=== PATIENT | female | born 1960 | race Caucasian/White ===

== ENCOUNTER 2025-01-27 21:01 | Emergency (ER) | payer OTHER, SELFPAY ==
--- NOTE | ~2025-01-27 | CT_ITS ---
CLINICAL HISTORY: Flank pain CT abdomen and pelvis with contrast Comparison: None Findings: The lung bases are clear. There are multiple bilateral nonobstructing renal calculi. Kidneys enhance symmetrically. No right-sided ureteral stone. There is mild left hydronephrosis and in the proximal left ureter is a 5 mm calcified stone. Spleen, adrenal glands, pancreas, gallbladder are unremarkable. Liver is mildly enlarged. No bowel obstruction, pneumoperitoneum, or pneumatosis. Pelvic contents unremarkable. Normal appendix. No acute fracture. IMPRESSION: 5 mm calcified stone in the proximal left ureter resulting in mild left hydronephrosis. Multiple bilateral nonobstructing renal calculi. This document has been electronically signed by: Ventura Szymanski MD on 01/27/2025 23:46:49
[2025-01-27 21:04] VITALS: BP 117/66; PULSE 73; RESP 18; TEMP 36.8; O2SAT 96; BMI 20.1
[2025-01-27 21:22] VITALS: BP 125/72; PULSE 61; RESP 16; TEMP 36.5; O2SAT 98
[2025-01-27 21:23] LABS: MANUAL DIFF FLAG NO
[2025-01-27 21:28] LABS: Basophils Percent Auto 0.4 % (0-2); Eosinophils Absolute Auto 0.1 X10*3/uL (0.0-0.4); Eosinophils Percent Auto 1.3 % (0-4); Hematocrit 41.1 % (37.0-47.0); Hemoglobin 14.1 g/dl (12.0-16.0); Imm Gran Abs Auto 0.03 X10*3/uL (0.00-0.03); Imm Gran Pct Auto 0.3 % (0.0-0.4); Lymphocytes Absolute Auto 1.9 X10*3/uL (1.2-4.9); Lymphocytes Percent Auto 20.9 % (20-40); Mean Corpuscular HGB Conc 34.3 g/dl (31.0-35.0); Mean Corpuscular Hemoglobin 32.6 pg (27.0-33.0); Mean Corpuscular Volume 95.1 fL (80.0-98.0); Mean Platelet Volume 9.9 fL (9.4-12.3); Monocytes Absolute Auto 0.7 X10*3/uL (0.1-1.2); Monocytes Percent Auto 7.7 % (2-11); Neutrophils Absolute Auto 6.3 x10*3/uL (2.0-8.3); Neutrophils Percent Auto 69.4 % (45-73); Platelet Count 328 X10*3/uL (160-400); Red Blood Count 4.32 X10*6/uL (4.20-5.50); Red Cell Distribution Width 12.8 % (11.0-16.0); White Blood Count 9.1 X10*3/uL (4.8-10.8)
[2025-01-27 21:42] LABS: Alanine Aminotransferase 39 U/L (0-31); Albumin Level 4.3 g/dL (3.5-5.0); Alkaline Phosphatase 61 U/L (39-117); Anion Gap 14 (12-20); Aspartate Amino Transferase 34 U/L (5-31); Bilirubin Total 0.2 mg/dL (0.0-1.0); Blood Urea Nitrogen 17 mg/dL (9-16); Calcium 9.7 mg/dL (8.4-10.2); Carbon Dioxide 25 mmol/L (22-29); Chloride 106 mmol/L (96-108); Creatinine Clr Calc Pharmacy 65.1; Estimated Glomerular Filt Rate > 60; Glucose Random 101 mg/dL (60-115); Sodium 141 mmol/L (135-145); Total Protein 7.1 g/dL (6.5-8.0)
[2025-01-27] MEDS: Ketorolac Tromethamine 15 MG/ML VIAL IVPUSH (22:34)
[2025-01-27] MEDS: ondansetron HCL 4 MG/2 ML VIAL IVPUSH (22:34)
[2025-01-27] MEDS: 0.9 % Sodium Chloride 1,000 ML 999 ML IV (22:35)
--- NOTE | 2025-01-27 22:35 | ED.GENADULT ---
HPI - General Adult General Chief complaint: Back Pain/Injury Stated complaint: Lower back pain Time Seen by Provider: 01/27/25 22:23 History of Present Illness ED Provider: Dr. Price HPI narrative: 64 y/o F patient; PMH rheumatoid arthritis on hydroxychloroquine and methotrexate, sinus tachycardia on cardizem; presents from home with for a few hours of severe left sided flank pain associated with nausea and vomiting. The patient states she has a history of kidney stones approx 20 - 25 years ago that felt similar. She otherwise denies: fever or chills, SOB, cough/congestion, abdominal pain. Her partner is not sick. Related Data Previous Rx's ?Medication ?Instructions ?Recorded acetaminophen 500 mg tablet 1,000 mg (2 x 500 mg) PO Q6H PRN 01/27/25 (Tylenol Extra Strength) pain 7 days #30 tabs ibuprofen 400 mg tablet 400 mg PO Q6H PRN pain 7 days #30 01/27/25 tabs ondansetron 4 mg disintegrating 4 mg PO Q8H PRN nausea and 01/27/25 tablet vomiting 7 days #30 tabs tamsulosin 0.4 mg capsule (Flomax) 0.4 mg PO DAILY 30 days #30 caps 01/27/25 Allergies Allergy/AdvReac Type Severity Reaction Status Date / Time No Known Allergies Allergy Verified 01/27/25 21:07 Review of Systems Review of Systems: Yes all other systems are reviewed and are negative [facility] Past Medical History Attestation statement: The following information was validated with the patient. Source: unable to obtain Social History Social History Alcohol intake: current Alcohol intake frequency: holidays/special occasions only Smoked in Last 30 Days: No Use of substances other than those prescribed or required for medical reasons: No Advance Directives: No Advance Directives Information Provided: No Patient : No Physical Exam ED Vital Signs: Vital Signs - 24 hr 01/27/25 21:04 01/27/25 21:22 01/27/25 23:00 Temperature 98.2 F 97.7 F Pulse Rate 73 61 92 Respiratory Rate 18 16 Blood Pressure 117/66 125/72 119/68 Pulse Oximetry 96 98 94 Oxygen Delivery Method Room Air Room Air Room Air BMI result Body Mass Index 20.1 Patient is afebrile and hemodynamically stable. Const General: cooperative HENMT Head: Yes normal to inspection and Yes atraumatic Eyes General: appearance normal, both eyes and all related structures Pupils: Equal, round and reactive pupils present EOM: EOMs intact bilaterally Neck Neck: Yes normal visual inspection, Yes full ROM, Yes supple and No tender Chest Chest palpation & inspection: normal inspection of the chest and normal palpation of entire chest wall Resp Effort & Inspection: normal respiratory effort, able to speak in complete sentences, no cough and no respiratory distress Auscultation: clear to auscultation bilaterally Cardio Rate: regular rate Rhythm: regular rhythm Peripheral pulses: Peripheral pulses 2+ throughout GI Inspection: Yes normal to inspection, No Abdominal wall edema and No distended Palpation (GI): Soft to palpation, not firm, nontender, no guarding and not rigid Auscultation: normal bowel sounds Back/Spine/Pelvis Back: No back tenderness Neuro Cranial nerves: Yes Equal, round and reactive pupils present Course Course Course Narrative: Patient is afebrile and hemodynamically stable. Differentials include but not limited to: nephrolithiasis, cystitis, pyelonephritis, back spasm. Provided 1L IVF for hydration, 4mg Zofran for nausea, and Toradol 15mg IV for analgesia. Ordered for lab work, UA, and CT Abdomen/Pelvis. Labs reviewed. No leukocytosis. Mild transaminitis, unclear baseline. Patient's nausea and pain has improved. Reevaluation(s) Reevaluation #1: CT reviewed. Noted to have 5mm calcified stone in the proximal left ureter resulting in mild left hydronephrosis. Will start on Flomax. Providing Urology follow up. UA with mild hematuria without cystitis. Rx Flomax, Tylenol, Ibuprofen, and Zofran sent to pharmacy. Medications Administered Discontinued Medications Generic Name Dose Route Start Last Admin Trade Name Freq PRN Reason Stop Dose Admin Sodium Chloride 1,000 mls @ 999 mls/hr 01/27/25 22:30 01/27/25 22:35 Ns IV 01/27/25 23:30 999 mls/hr .Q1H1M JAMAL Administration Iohexol 85 ml 01/27/25 22:53 01/27/25 22:54 Iohexol 350 Mg/Ml 100 Ml Infus..Btl IV 01/27/25 22:54 85 ml ONCE ONE Administration Ketorolac Tromethamine 15 mg 01/27/25 22:23 01/27/25 22:34 Ketorolac Tromethamine 15 Mg/Ml Vial IVPUSH 01/27/25 22:24 15 mg ONCE ONE Administration Ondansetron HCl 4 mg 01/27/25 22:23 01/27/25 22:34 Ondansetron Hcl 4 Mg/2 Ml Vial IVPUSH 01/27/25 22:24 4 mg ONCE ONE Administration Medical Decision Making Lab Data 01/27/25 21:15 01/27/25 21:15 Labs: Lab Results 01/27/25 01/27/25 Range/Units 21:15 23:29 WBC 9.1 (4.8-10.8) X10*3/uL RBC 4.32 (4.20-5.50) X10*6/uL Hgb 14.1 (12.0-16.0) g/dl Hct 41.1 (37.0-47.0) % MCV 95.1 (80.0-98.0) fL MCH 32.6 (27.0-33.0) pg MCHC 34.3 (31.0-35.0) g/dl RDW 12.8 (11.0-16.0) % Plt Count 328 (160-400) X10*3/uL MPV 9.9 (9.4-12.3) fL Immature Gran % (Auto) 0.3 (0.0-0.4) % Neut % (Auto) 69.4 (45-73) % Lymph % (Auto) 20.9 (20-40) % [place] % (Auto) 7.7 (2-11) % Eos % (Auto) 1.3 (0-4) % Baso % (Auto) 0.4 (0-2) % Lymph # (Auto) 1.9 (1.2-4.9) X10*3/uL [place] # (Auto) 0.7 (0.1-1.2) X10*3/uL Eos # (Auto) 0.1 (0.0-0.4) X10*3/uL Baso # (Auto) 0.0 (0.0-0.2) X10*3/uL Abs Immat Gran (auto) 0.03 (0.00-0.03) X10*3/uL Absolute Neuts (auto) 6.3 (2.0-8.3) x10*3/uL Absolute Nucleated RBC 0.000 (0.0-0.012) X10*3/uL Nucleated RBC % (auto) 0.0 (0.0-0.2) /100WBC Sodium 141 (135-145) mmol/L Potassium 4.0 (3.3-5.1) mmol/L Chloride 106 (96-108) mmol/L Carbon Dioxide 25 (22-29) mmol/L Anion Gap 14 (12-20) BUN 17 H (9-16) mg/dL Creatinine 0.75 (0.5-1.4) mg/dL Estim Creat Clear Calc 65.1 Estimated GFR > 60 Random Glucose 101 (60-115) mg/dL Calcium 9.7 (8.4-10.2) mg/dL Total Bilirubin 0.2 (0.0-1.0) mg/dL AST 34 H (5-31) U/L ALT 39 H (0-31) U/L Alkaline Phosphatase 61 (39-117) U/L Total Protein 7.1 (6.5-8.0) g/dL Albumin 4.3 (3.5-5.0) g/dL Urine Color Yellow Urine Appearance Clear Urine pH 7.0 (5.0-9.0) Ur Specific [place] >= 1.030 H (1.005-1.025) Urine Protein Negative (Neg-Trace) mg/dL Urine Glucose (UA) Negative (Negative) mg/dL Urine Ketones Trace (Negative) mg/dL Urine Blood Moderate (2+) H (Negative) Urine Nitrite Negative (Negative) Ur Leukocyte Esterase Small (1+) H (Negative) Urine RBC 6-10 H (0-2) /HPF Urine WBC 0-5 (0-5) /HPF Ur Squamous Epith Cells 0-2 (0-2) /HPF Urine Bacteria None Seen (None Seen) Hyaline Casts 0-2 (0-2) /LPF Radiology Impression Discussion of test interpretation with radiology: I have reviewed the radiologist's reading. Radiologist Impression: CLINICAL HISTORY: Flank pain CT abdomen and pelvis with contrast Comparison: None Findings: The lung bases are clear. There are multiple bilateral nonobstructing renal calculi. Kidneys enhance symmetrically. No right-sided ureteral stone. There is mild left hydronephrosis and in the proximal left ureter is a 5 mm calcified stone. Spleen, adrenal glands, pancreas, gallbladder are unremarkable. Liver is mildly enlarged. No bowel obstruction, pneumoperitoneum, or pneumatosis. Pelvic contents unremarkable. Normal appendix. No acute fracture. IMPRESSION: 5 mm calcified stone in the proximal left ureter resulting in mild left hydronephrosis. Multiple bilateral nonobstructing renal calculi. This document has been electronically signed by: Ventura Szymanski MD on 01/27/2025 23:46:49 Discharge Plan Discharge Clinical Impression: Left nephrolithiasis Patient Disposition: Home, Self-Care Instructions: Kidney Stones (ED) Additional Instructions: As we discussed, you were diagnosed with a 5mm left-sided kidney stone. You have been sent prescriptions for tylenol 1g and ibuprofen 400mg to be taken alternating every 6 hours as needed. You have also been sent a prescription for Zofran for nausea to be taken every 8 hours as needed. The prescription for Flomax is to assist with passing the stone, take it once a day as prescribed. Call to schedule an appointment with the Urology service on Tuesday. Return to the emergency department for: Worsening pain Fever Vomiting where you cannot sip water Prescriptions: New tamsulosin [Flomax] 0.4 mg capsule 0.4 mg PO DAILY 30 Days Qty: 30 0RF ibuprofen 400 mg tablet 400 mg PO Q6H PRN (Reason: pain) 7 Days Qty: 30 0RF acetaminophen [Tylenol Extra Strength] 500 mg tablet 1,000 mg PO Q6H PRN (Reason: pain) 7 Days Qty: 30 0RF ondansetron 4 mg tablet,disintegrating 4 mg PO Q8H PRN (Reason: nausea and vomiting) 7 Days Qty: 30 0RF Referrals: [facility] [place] [Provider Group] (Please call Tuesday to schedule an appointment for follow up. ) Print Language: Gibralt[place]
[2025-01-27] MEDS: iohexoL 350 MG/ML 100 ML INFUS..BTL 85 ML IV (22:54)
[2025-01-27 23:00] VITALS: BP 119/68; PULSE 92; O2SAT 94
--- NOTE | 2025-01-27 23:08 | PC.NURSE ---
got toradol and zofran. pain and nausea resolved as stated by pt. currently tolerating PO water without n/v
[2025-01-27 23:34] LABS: Appearance Urine Clear; Color Urine Yellow; Glucose Urine UA Negative (Negative); Leukocyte Esterase Urine Small (1+) (Negative); Nitrite Urine Negative (Negative); Specific Gravity - Urine >= 1.030 (1.005-1.025); UMIC TRIGGER UACC YES; Urine Blood Moderate (2+) (Negative); Urine Ketones Trace mg/dL (Negative); Urine Protein Negative (Neg-Trace)
[2025-01-27 23:46] LABS: Bacteria Urine None Seen (None Seen); Hyaline Casts Urine 0-2 /LPF (0-2); Squamous Epithelial Cell Urine 0-2 /HPF (0-2); UACC Culture Trigger YES; WBC Urine 0-5 /HPF (0-5)
[2025-01-28 00:41] VITALS: BP 121/67; PULSE 93; RESP 16; TEMP 36.5; O2SAT 94
== END 2025-01-28 00:45 | disposition home or self-care (01) ==
PROVIDERS: Emergency Provider Emergency Medicine
DX: N20.0 Calculus of kidney (principal); R10.9 Unspecified abdominal pain; R11.2 Nausea with vomiting, unspecified; R00.0 Tachycardia, unspecified; M06.9 Rheumatoid arthritis, unspecified
CPT/HCPCS: 36415; 74177; 80053; 81001; 85025; 87086; 96361; 96374; 96375; 99284; J1885; J2405; Q9967

== ENCOUNTER → 2025-01-27 22:24 | Outpatient (BNV) | payer OTHER, SELFPAY | PROVIDERS: Emergency Provider Emergency Medicine; Visit Provider Radiology Diagnostic Radiology | DX: N20.1 Calculus of ureter (principal); N13.30 Unspecified hydronephrosis; N20.0 Calculus of kidney | CPT/HCPCS: 74177 ==

== ENCOUNTER 2025-03-13 14:53 | Outpatient (AMB) | payer OTHER, SELFPAY ==
--- NOTE | 2025-03-13 15:47 | MHC.OFFVIS ---
Intake Visit Reasons: bilateral kidney stones Intake Note: Patient is present for BILATERAL KIDNEY STONES Urology Medication:TAMSULOSIN Antibiotic Allergy:NONE Blood Thinner:NONE Production Supv Required: No Allergies No Known Allergies Allergy (Verified 03/13/25 15:48) HPI Comments Details: Mary is a pleasant female. They are seen for the following urologic conditions - nephrolithiasis Initial presentation Encourage intervention Nephrolithiasis Mary presents for - initial evaluation for nephrolithiasis, Initial presentation through emergency room late January Presenting symptoms included left flank pain which had been resolved but has recurred in the past few days Imaging - 02/24 CT scan left mild hydro uretero nephrosis with 5 mm proximal ureteric stone, bilateral small stones Laboratory investigations - creatinine 0.75, blood in the urine Stone composition - unknown 24 hour urine evaluation - none on file Interventions - none Current therapeutic plan - recommend intervention with left ureteroscopy [facility] Social History Alcohol intake: current Alcohol intake frequency: holidays/special occasions only Review of Systems Const Denies chills and Denies fever(s) Card Reports no additional complaints and Denies syncope Resp Denies cough GI Denies abdominal pain and Denies heartburn Reports as per HPI and Denies change in libido Neuro Denies syncope Psych Denies change in libido Endo Denies change in libido Physical Exam Const General: cooperative, healthy appearing, comfortable and no acute distress Orientation/consciousness: patient oriented x3 HEENT Face and sinus: Yes normal facial exam Mouth: moist mucous membranes Neck Neck: Yes normal visual inspection, Yes full ROM and Yes trachea midline Chest Chest palpation & inspection: normal inspection of the chest Resp Effort & Inspection: normal respiratory effort, able to speak in complete sentences and no respiratory distress GI Inspection: Yes normal to inspection Back/Spine/Pelvis Cervical Spine: normal cervical lordosis Thoracic/Lumbar Spine: thoracic and lumbar spine normal to inspection Skin General skin exam: no rashes or lesions noted Neuro General: patient oriented x3, gait normal, tone normal and moves all extremities Extrem General: Yes normal to inspection and Yes capillary refill normal Results AMB Urinalysis, Automated UA Leukoctes 0 Xander/uL Last Edit by AIRAM Flores on 03/13/25 16:01 UA Nitrite Negative Last Edit by AIRAM Flores on 03/13/25 16:01 UA Urobilinogen 0.2 mg/dL Last Edit by AIRAM Flores on 03/13/25 16:01 UA Protein 0 mg/dL Last Edit by Ashwini Davis [facility] on 03/13/25 16:01 UA pH 6.0 Last Edit by Ashwini aDvis [facility] on 03/13/25 16:01 UA Blood 200 [place]/uL Last Edit by Ashwini Davis [facility] on 03/13/25 16:01 UA Specific [place] 1.005 Last Edit by Ashwini Davis [facility] on 03/13/25 16:01 UA Ketone Negative Last Edit by Ashwini Davis [facility] on 03/13/25 16:01 UA Bilirubin 0 mg/dL Last Edit by Ashwini Davis [facility] on 03/13/25 16:01 UA Glucose 0 mg/dL Last Edit by Ashwini Davis [facility] on 03/13/25 16:01 Assessment & Plan Assessment & Plan (1) Bilateral nephrolithiasis: Code(s): N20.0 - Calculus of kidney Category: Medical Plan Ureteroscopy We discussed the nature of the decision and reasonable alternatives for performing ureteroscopy. Options such as medical therapy were discussed. Interventions include chemical dissolution, ESWL, ureteroscopy with laser lithotripsy and stent placement, PCNL. The relative uncertainties and benefits related to each alternate procedure were adequately discussed. General surgical risks including, but not limited to - pain, bleeding, infection, myocardial infarction, pulmonary embolus, deep vein thrombosis and cerebrovascular accident which may result in further hospitalization were discussed. Full disclosure of the procedure as well as all major risks, benefits and complications were discussed including but not limited to damage to the urethra, bladder and kidney infection, damage to the ureter, stent migration or malposition, scarring to the renal pelvis, remnant stone fragments, subsequent stone passage with need for secondary procedures. The overall secondary procedure rate is approximately 10-15%. The overall clearance rate is approximately 90-95%. Success of the procedure in the short-term does not necessarily guarantee that long-term success will be maintained. Suitable follow up will need to be maintained. The patient showed understanding of discussion and wishes to proceed with - cystoscopy, retrograde, ureteroscopy, possible lithotripsy/stone basketing and stent on the left side Orders: Orders AMB Urinalysis Automated Today Z13.9 - Encounter for screening, unspecified Patient Instructions: This note is constructed using voice recognition software. While every effort has been made to ensure accuracy contact lens manufacturer errors may have been included. Imaging studies, laboratory and physical exam results were discussed and reviewed in detail. No major barriers to patient understanding were identified. An opportunity to ask questions regarding the treatment plan was provided. All questions were answered. The patient expressed understanding and agreement with the above treatment plan. The patient is aware they should contact our office by phone for worsening of their current condition or the appearance of new urologic symptoms. Compliance is encouraged with any medications and followup testing that is ordered. It is a privilege to participate in the urologic care of your patient. If you have any questions or concerns regarding treatment for the above conditions, or other urologic issues, please do not hesitate to contact me. The office telephone contact is [phone]. Sincerely, Dr Dada Mcarthur MD, [facility] - Urology Compassionate Specialist Care for the Genitourinary System Coding Level of Care Code New Pt Level 4 (46610) Diagnoses Bilateral nephrolithiasis N20.0
--- OUTSIDE RECORDS SUMMARY | 2025-03-13 17:06 | XMS_ITS ---
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 Name Role Phone Mar Whaley Primary Care Provider Mack Escalante Unavailable [phone] Allergies No Known Allergies Results Component Value Reference Range Notes Sedimentation Rate-Westergre n-[id number] Reviewed date:02/23/2025 07:06:15 AM Interpretation: Performing Lab:[facility], [address] [facility], Phone - [phone], Director - Jacklyn Notes/Report: Sedimentation Rate-Westergren 18 0-40 mm/hr C-Reactive Protein, Quant-00 [id number] Reviewed date:02/23/2025 07:05:09 AM Interpretation: Performing Lab:[facility] [place], [address] [facility], Phone - [phone], Director - Jacklyn Notes/Report: C-Reactive Protein, Quant 2 0-10 mg/L Kalie Anand CMP14 Default A hand-written panel/profile was received from your office. In accordance with the [facility] Ambiguous Test Code Policy dated April 2003, we have completed your order by using the closest currently or formerly recognized AMA panel. We have assigned Comprehensive Metabolic Panel (14), Test Code #032969 to this request. If this is not the testing you wished to receive on this specimen, please contact the [facility] Client Inquiry/Technical Services Department to clarify the test order. We appreciate your business. Comprehensive Metabolic Pane l ([id number], [facility]) Reviewed date:02/23/2025 07:05:00 AM Interpretation: Performing Lab:[facility] Lozada, [facility], Phone - [phone], Director - MDJodry Notes/Report: Glucose 91 70-99 mg/dL BUN 12 8-27 mg/dL Creatinine 0.62 0.57-1.00 mg/dL eGFR 101 >59 mL/min/1.73 BUN/Creatinine Ratio 19 12-28 Sodium 140 134-144 mmol/L Potassium 4.2 3.5-5.2 mmol/L Chloride 102 96-106 mmol/L Carbon Dioxide, Total 21 20-29 mmol/L Calcium 9.4 8.7-10.3 mg/dL Protein, Total 7.0 6.0-8.5 g/dL Albumin 4.4 3.9-4.9 g/dL Globulin, Total 2.6 1.5-4.5 g/dL Bilirubin, Total 0.4 0.0-1.2 mg/dL Alkaline Phosphatase 68 44-121 IU/L AST (SGOT) 20 0-40 IU/L ALT (SGPT) 24 0-32 IU/L CBC, No Differential/Platele t-[id number] (Use This One) Reviewed date:02/23/2025 07:05:20 AM Interpretation: Performing Lab:Mariajose Lozada, [facility], Phone - [phone], Director - Shreyadry Notes/Report: WBC 6.2 3.4-10.8 x10E3/uL RBC 4.27 3.77-5.28 x10E6/uL Hemoglobin 13.5 11.1-15.9 g/dL Hematocrit 40.5 34.0-46.6 % MCV 95 79-97 fL MCH 31.6 26.6-33.0 pg MCHC 33.3 31.5-35.7 g/dL RDW 13.0 11.7-15.4 % Platelets 251 150-450 x10E3/uL T4 and TSH-[id number] Reviewed date:02/23/2025 07:05:29 AM Interpretation: Performing Lab:Mariajose Lozada, [facility], Phone - [phone], Director - MDJodry Notes/Report: TSH 2.790 0.450-4.500 uIU/mL Thyroxine (T4) 8.0 4.5-12.0 ug/dL Lipid Panel-[id number] Reviewed date:03/04/2025 02:48:05 PM Interpretation: Performing Lab:[facility], [address], [place], Phone - [phone], Director - Jacklyn Notes/Report: Cholesterol, Total 241 100-199 mg/dL Triglycerides 165 0-149 mg/dL HDL Cholesterol 51 >39 mg/dL VLDL Cholesterol Jg 30 5-40 mg/dL LDL Chol Calc (NIH) 160 0-99 mg/dL Reason For Referral Reason rheumatoid arthritis Diagnosis 1 Rheumatoid arthritis (M06.9) Referral Organization [facility] Referring Provider First Name Mack Referring Provider Last Name Boris Referring Provider Speciality Family Pra ctice Referred Provider [facility] Referred Provider Specialty Rheumatology General Notes Maricarmen Napoles 01/02 10:50:29 AM > Referral faxed to: [phone] Clinical Notes Provider Name: [facility], Provider ID Number: , Provider UPIN: , Provider , Provider Facility: , Provider Speciality: Rheumatology, Address1: [address] [place] [address], Address2: , [facility] [place], Zip: [place], [address], , Appt. Date/Time: , Referral Priority Routine REASON FOR VISIT CPE- fu, PHQ9: 0, PAP: 09/14/22 negative, due in 09/26, declines for today, MAMMO: last 05/06/2021- overdue, will schedule- HW sheet given, COLONOSCOPY: Cologaurd done 01/25/24 negative- due 2026, HCP: Carmen Jarquin-partner, ppw given, Imms: due for pcv20 (checked miyanira nuñez), declines today will timmy SINGH, Hearing screen: R- uto, L- refer Medications Medication SIG (Take, Route, Frequency, Duration) Notes Start Date End Date Status Cardizem CD 240 MG 1 cap(s) orally twic e a day Active Methotrexate Sodium 2.5 MG 5 tabs orally once a week Active Iron 90 (18 Fe) MG 1 PO BID 45mg A ctive Folic Acid 1 MG 1 tab(s) orally once a day Active Hydroxychloroquine Sulfate 2 00 MG 1 tab(s) orally once a day Active Dexilant 60 MG TAKE 1 CAPSULE BY MOUTH EVERY DAY for 90 Active Caltrate 600+D Plus Minerals 600-800 MG-UNIT 1 tab(s) orally 2 times a day for 30 day(s) Active Diclofenac 1% DIRECTED PRN Active Vital Signs Temperature 96.9 degrees Fahrenheit 01/26/20 Blood pressure systolic 104 mm Hg 01/26/20 Blood pressure diastolic 60 mm Hg 025 Height 63.75 in 01/25/2025 Weight 117.4 lbs 01/25/2025 BMI 20.31 kg/m2 01/25/2025 Oximetry 95 01/25/2025 Encounters Encounter Location Date Provider Diagnosis [address] [address] 01/25/2025 Mack Escalante Adult physical NITISH L Z00.00 ; Mammogram, Routine Z12.31 and Rheumatoid arthritis M06.9 Assessments Encounter Date Diagnosis (ICD Code) Assessment Notes Treatment Notes Treatment Clinical Notes Section Notes 01/25/2025 Adult physical NORMAL (ICD-10 - Z00.00) see below Plans to schedule appt for pap when due 01/25/2025 Mammogram, Routine (ICD-10 - Z12.31) Past due for screening. Patient has HW sheet with number to call to schedule 01/25/2025 Rheumatoid arthritis (ICD-10 - M06.9) referral to [facility] made as patient in in need of new sizing sprayer. Labs ordered. Condition stable 01/25/2025 Other Health maintenance flow sheet reveiwed and updated Plan Of Treatment Treatment Notes Assessment Notes Adult physical NORMAL see below Plans to schedule appt for pap when due Mammogram, Routine Past due for screeni ng. Patient has HW sheet with number to call to schedule Rheumatoid arthritis referral to [facility] treatment center made as patient in in need of new sizing sprayer. Labs ordered. Condition stable Other Health maintenance f low sheet reveiwed and updated Pending Test Test Name Order Date COMP MET PANEL 01/25/2025 Referrals Referral Date Details 01/25/2025 01/25/2025, rheumato id arthritis, Center [facility] Next Appt Details Follow Up: @ [facility], 1 Year, Reason: Provider Name:Mitra Tejeda, 09/16/2025 04:30:00 PM, [address] [place] [address], [id number], Provider Name:Mack Escalante, 0 01/29/2026 04:00:00 PM, [address] [place], [address], Procedure Notes * Category Sub-Category Detail Notes Hearing Screen Completed * OAE UTO R ear , OAE Refer L ear Progress Notes * NATHAN ANTHONYJESUSB:1960 ( 64 yo F)Acc No.[id number]:01/25/2025 Progress Notes Patient:?LEONIDAS ANTHONY Appointment Provider:?BIRGIT Clifton :1960???Age:64 Y???Sex:Female S upervising Provider:Mar Whaley MD Date:01/25/2025 ?N#:[id number] Address:[address] [place], [place] [id number] Pcp:Mar Whaley Subjective: * Chief Complaints: * ???CPE- fuPHQ9: 0PAP: negative, due in 09/26, declines for todayMAMMO: last 05/06/2021- overdue, will schedule- HW sheet givenCOLONOSCOPY: Cologaurd done 01/25/24 negative- due 2026HCP: Carmen Jarquin-partner, ppw givenImms: due for pcv20 (checked miyanira nuñez), declines today will make a NVHearing screen: R- uto, L- refer * HPI: ???Interim History:? 64 year old Female presents for CPE First time i am meeting patient RA - things have been stable. Taking hydroxycholoroquine and MTX. Prior rheumoatologist no longer seeing patients locally. 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 ???Depression Screening:?PHQ-9?Little interest or pleasure in doing things?Not at all,?Feeling down, depressed, or hopeless?Not at all,?Trouble falling or staying asleep, or sleeping too much?Not at all,?Feeling tired or having little energy?Not at all,?Poor appetite or overeating?Not at all,?Feeling bad about yourself-or that you are a failure or have let yourself or your family down?Not at all,?Trouble concentrating on things, such as reading the newspaper or watching television?Not at all,?Moving or speaking so slowly that other people could have noticed. Or the opposite, being so fidgety or restless that you have been moving around a lot more than usual?Not at all,?Thoughts that you would be better off , or of hurting yourself in some way?Not at all,?Total Score?0.? * ROS:?See HPI. Other systems reviewed and noncontributory except for as noted above . * Medical History:? * Surgical History:?R ear surg les for hearing loss 1980ovarian cysts removed 2003 or 2002?ovaries removed 2007gum surgery 03/2020 * Hospitalization/Major Diagno stic Procedure:?Denies Past Hospitalization * Family History:?Father: dece ased, diagnosed with Diabetes, Hypertension.?Mother: .?Paternal Grand Father: .?Paternal Grand Mother: .?Maternal Grand Father: . Maternal Grand Mother: .?Siblings: alive.?1 sister(s) . .? * Social History:?Lives: [place] , lives wih partner. Smoking Smart Form?Are you a:: nonsmoker.?Smoking: no?Former Smoker:?No,?Second Hand Smoke:?No.?Alcohol: a beer or two a week. Drug use: denies. 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 Gnosticism: none. Caffeine: None. Pets: Dogs:1 , Cats:1 , chickens. sleep: difficulty staying asleep, wakes hourly. Falls asleep ok initially and in the night diet: varied, no red meat. * Medications:?TakingHydroxych loroquine Sulfate 200 MG Tablet 1 tab(s) orally once a day Folic Acid 1 MG Tablet 1 tab(s) orally once a day Iron 90 (18 Fe) MG Tablet 1 PO BID , Notes to Pharmacist: 45mgMethotrexate Sodium 2.5 MG Tablet 5 tabs orally once a week Cardizem CD 240 MG Capsule Extended Release 24 Hour 1 cap(s) orally twice a day Diclofenac 1% DIRECTED PRN Caltrate 600+D Plus Minerals 600-800 MG-UNIT Tablet 1 tab(s) orally 2 times a day Dexilant 60 MG Capsule Delayed Release TAKE 1 CAPSULE BY MOUTH EVERY DAY Medication List reviewed and reconciled with the patientTaking Hydroxychloroquine Sulfate 200 MG Tablet 1 tab(s) orally once a day Taking Folic Acid 1 MG Tablet 1 tab(s) orally once a day Taking Iron 90 (18 Fe) MG Tablet 1 PO BID , Notes to Pharmacist: 45mgTaking Methotrexate Sodium 2.5 MG Tablet 5 tabs orally once a week Taking Cardizem CD 240 MG Capsule Extended Release 24 Hour 1 cap(s) orally twice a day Taking Diclofenac 1% DIRECTED PRN Taking Caltrate 600+D Plus Minerals 600-800 MG-UNIT Tablet 1 tab(s) orally 2 times a day Taking Dexilant 60 MG Capsule Delayed Release TAKE 1 CAPSULE BY MOUTH EVERY DAY Medication List reviewed and reconciled with the patient * Allergies:?N.K.D.A.no[Allerg ies Verified] Objective: * Vitals:?Initials:ldb, Ht: 63 .75 in, Wt: 117.4 lbs, BMI: 20.31 Index, Temp: 96.9 F, Temp Route: T, HR: 81, PulseOx: 95, BP: 104/60, PHQ-9: 0. * Physical Examination:?GENERAL:?General Appearence:?well-appearing, alert and oriented.?SKIN:?Moles:?benign appearing.?LYMPH NODES:?Cervical:?none.?EYES:?Conjunctiva:?no conjunctival injections. JOSELINE, EOMI bilaterally.?HEENT:?Head:?normocephalic.?Tympanic membrane(s):?clear and flat bilaterally.?Mouth:?moist mucus membranes, no lesions. .?NECK:?General:?supple.?Thyroid:?Not enlarged.?Cervical lymph nodes:?normal.?Muscles:?normal.?BREASTS:?Exam deferred?per patient's preference.?CHEST:?Shape and expansion:?normal.?HEART:?PMI:?normal.?Rhythm:?regular.?Murmurs:?no.?Heart sounds:?normal.?Clicks:?no.?LUNGS:?General:?no wheezes or rales. good airflow throughout.?ABDOMEN:?General:?soft, no masses or hepatosplenomegaly, nontender, NABS.?BACK:?Spine:?normal.?GENITOURINARY - FEMALE:?General:?deferred today.?EXTREMITIES:?Edema:?no.?Cyanosis:?no.?Clubbing:?no.?Tremors:?no.?Pulses:?2+ bilateral.?MUSCULOSKELETAL:?General:?normal strength and ROM noted..?NEUROLOGICAL:?Sensory:?Normal.?Motor:?Normal.?Coordination:?Normal.?Reflexes:?2+.?Gait:? Normal.? Assessment: * Assessment: 1.?Adult physical NORMAL - Z 00.00 (Primary)???2.?Mammogram, Routine - Z12.31???3.?Rheumatoid arthritis - M06.9??? Plan: * Treatment: ? Value Reference Range ?Cholesterol, Total 241 H 100- 199 - mg/dL * ?Triglycerides 165 H 0-149 - m g/dL * ?HDL Cholesterol 51 >39 - m g/dL * ?VLDL Cholesterol Jg 30 5- 40 - mg/dL * ?LDL Chol Calc (NIH) 160 H 0-9 9 - mg/dL ?LAB: CBC, No Differential/Platelet-[id number] (Use This One) (Collection Date & Time - 02/21/2025 07:41 AM)* ? Value Reference Range ?WBC 6.2 3.4-10.8 - x10E 3/uL * ?RBC 4.27 3.77-5.28 - x10 E6/uL * ?Hemoglobin 13.5 11.1-15.9 - g/dL * ?Hematocrit 40.5 34.0-46.6 - % * ?MCV 95 79-97 - fL * ?MCH 31.6 26.6-33.0 - pg * ?MCHC 33.3 31.5-35.7 - g/d L * ?RDW 13.0 11.7-15.4 - % * ?Platelets 251 150-450 - x10 E3/uL ?LAB: T4 and TSH-[id number] (Collection Date & Time - 02/21/2025 07:41 AM)* ? Value Reference Range ?TSH 2.790 0.450-4.500 - u IU/mL * ?Thyroxine (T4) 8.0 4.5-12.0 - ug/dL Notes: see below Plans to schedule appt for pap when due??2.?Mammogram, Routine? Notes: Past due for screening. Patient has HW sheet with number to call to schedule??3.?Rheumatoid arthritis?LAB: COMP MET PANEL ?LAB: Sedimentation Wnjs-[id number] (Collection Date & Time - 02/21/2025 07:41 AM)* ? Value Reference Range ?Sedimentation Rate-Westergren 18 0-40 - mm/hr ?LAB: C-Reactive Protein, Quant-[id number] (Collection Date & Time - 02/21/2025 07:41 AM)* ? Value Reference Range ?C-Reactive Protein, Quant 2 0-10 - mg/L Notes: referral to [facility]ritis treatment center made as patient in in need of new sizing sprayer. Labs ordered. Condition stable? Referral To:Center [facility]??Rheumatology ?Reason:rheumatoid arthritis 4.?Others? Notes: Health maintenance flow sheet reveiwed and updated?? * Procedures:?Hearing Screen:?Completed?* OAE UTO R ear?, OAE Refer L ear.? * Labs:? * ?Lab: Comprehensive [place] bolic Panel ([id number], [facility]) (Collection Date & Time - 02/21/2025 07:41 AM) ? Value Reference Range ?Glucose 91 70-99 - mg/dL * ?BUN 12 8-27 - mg/dL * ?Creatinine 0.62 0.57-1.00 - mg/dL * ?BUN/Creatinine Ratio 19 12 -28 - * ?Sodium 140 134-144 - mmol/ L * ?Potassium 4.2 3.5-5.2 - mmo l/L * ?Chloride 102 96-106 - mmol/ L * ?Carbon Dioxide, Total 21 2 0-29 - mmol/L * ?Calcium 9.4 8.7-10.3 - mg/d L * ?Protein, Total 7.0 6.0-8.5 - g/dL * ?Albumin 4.4 3.9-4.9 - g/dL * ?Globulin, Total 2.6 1.5-4.5 - g/dL * ?Bilirubin, Total 0.4 0.0-1. 2 - mg/dL * ?Alkaline Phosphatase 68 44 -121 - IU/L * ?AST (SGOT) 20 0-40 - IU/L * ?ALT (SGPT) 24 0-32 - IU/L * ?eGFR 101 >59 - mL/min/1. 73 * Procedure Codes:?90818 PHQ9 or ADHD scale * Preventive Medicine:? ??Counseling:?Diet?.?Injury prevention?.?Exercise?.?Sexual practices?.?Domestic violence?.?Sunscreen?.?Health?discuss perimenopausal signs and symptoms.?no risk factors identified. * Follow Up:?@ pap smear in [place], 1 Year * Images: Billing Information: * Visit Code:? 15431 Preventive Care Est Pt. Age 40-64. * Procedure Codes:? 26735 PHQ9 or ADHD scale. Care Plan Details* * Sign off status: Completed true * Appointment Provider:?BIRGIT Clifton Date :?01/25/2025 Generated for Jeovanny velasquez/Leatha/eTransmitting on:?03/13/2025 05:05 PM EDT History and Physical Notes * HPI (History of Present Illness) Category Sub-Category Detail Notes Category Not es Depression Screening PHQ-9 Little inte rest or pleasure in doing things: Not at all Feeling down, depressed, or hopeless: No t at all Trouble falling or staying asleep, or sl eeping too much: Not at all Feeling tired or having little energy: N ot at all Poor appetite or overeating: Not at all Feeling bad about yourself-o r that you are a failure or have let yourself or your family down: Not at all Trouble concentrating on thi ngs, such as reading the newspaper or watching television: Not at all Moving or speaking so slowly that other people could have noticed. Or the opposite, being so fidgety or restless that you have been moving around a lot more than usual: Not at all Thoughts that you would be b edmundo off , or of hurting yourself in some way: Not at all Total Score: 0 Interim History 64 year old Female presents for CPE First time i am meeting patient RA - things have been stable. Taking hydroxycholoroquine and MTX. Prior rheumoatologist no longer seeing patients locally. 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 NECK General: supple Thyroid: Not enlarged Cervical lymph nodes: normal Muscles: normal Carotid bruit: JVD: EXTREMITIES Edema: no Cyanosis: no Clubbing: no Tremors: no Pulses: 2+ bilateral BACK Spine: normal CHEST Shape and expansion: normal HEART PMI: normal Rhythm: regular Murmurs: no Heart sounds: normal Clicks: no ABDOMEN General: soft, no masses or hepatospl enomegaly, nontender, NABS NEUROLOGICAL cranial nerves Sensory: Normal Motor: Normal Coordination: Normal Reflexes: 2+ Babinski: Gait: Normal MUSCULOSKELETAL General: normal strength and ROM n oted. GENITOURINARY - FEMALE General: deferred today SKIN Moles: benign appearing GENERAL General Appearence: well-appearing, alert and oriented LYMPH NODES Cervical: none Axillary: LUNGS General: no wheezes or rales. good ai rflow throughout BREASTS Exam deferred per patient's preference EYES Conjunctiva: no conjunctival injections. JOSELINE, EOMI bilaterally Consultation Request Notes Referral Date Referring Provider Referred Provider Not es 01/25/2025 Mack Escalante [facility] rheumatoid [facility]
== END 2025-03-13 16:20 | disposition home or self-care (01) ==
LOC: HO.HUSH 14:53
PROVIDERS: Visit Provider Urology
DX: Z13.9 Encounter for screening, unspecified (principal); N20.0 Calculus of kidney
CPT/HCPCS: 99204

== ENCOUNTER → 2025-03-13 14:53 | Outpatient (BNVA) | payer OTHER, SELFPAY | PROVIDERS: Visit Provider Urology | DX: N20.0 Calculus of kidney (principal) | CPT/HCPCS: 81003 ==

== ENCOUNTER 2025-03-18 10:21 | Day surgery (SDC) | payer OTHER, SELFPAY ==
--- NOTE | ~2025-03-18 | FL_ITS ---
EXAMINATION: XR FLUOROSCOPY WITH IMAGES CLINICAL INFORMATION: Left ureteral stone with stent placement. COMPARISON: None available. TECHNIQUE: Fluoroscopy provided to: Dr. Mcarthur Fluoroscopy time: 16.9 seconds Dose: 2.64 mGy Images: 2 FINDINGS: 2 spot images taken during left nephroureteral stent placement. Please refer to the full operative report for details. FL/FL guidance in OR IMPRESSION: Fluoroscopic guidance. Electronically signed by: Boris Rutherford MD 03/18/2025 12:54 PM EDT
--- NOTE | 2025-03-18 10:23 | P.CONAN_ITS ---
[facility] Active Problems Active Problems: All Active Problems Bilateral nephrolithiasis (Acute) Past Medical History Medical History Rheumatoid arthritis Tachycardia Surgical History Surgical History H/O removal of cyst History of ear surgery H/O bilateral oophorectomy History of Problems with Anesthesia: No Social History Social History Are you a primary career placement specialist to a significant other at home: No Do you presently have visiting nurse or other home services: No Alcohol intake: current Alcohol intake frequency: a few times a month Patient Tobacco Use Status: Never used Tobacco Meds Allergies Allergy/AdvReac Type Severity Reaction Status Date / Time No Known Allergies Allergy Verified 03/18/25 10:24 Home Medications ?Medication ?Instructions ?Recorded ?Confirmed ?Last Taken ?Type dexlansoprazole 60 mg 60 mg PO DAILY 03/18/25 03/18/25 Unknown History capsule,biphase delayed release diltiazem HCl 240 mg 240 mg PO BID 03/18/25 03/18/25 03/17/25 History capsule,extended release 24 hr folic acid 1 mg tablet 1 mg PO DAILY 03/18/25 03/18/25 03/17/25 History hydroxychloroquine 200 mg tablet 200 mg PO DAILY 03/18/25 03/18/25 Unknown History iron 03/18/25 03/18/25 Unknown History methotrexate sodium 2.5 mg tablet 12.5 mg PO QWEEK 03/18/25 03/18/25 03/12/25 History prednisone 5 mg tablet 5 mg PO NEEDED flair ups 03/18/25 03/18/25 Unknown History Exam Airway Mallampati Class: II TM Dist: >3cm Neck ROM: Limited Loose/Missing/Broken Teeth: No Heart: RRR Lungs: CTA Assessment and Plan Assessment Anesthesia Assessment: Anesthesia Plan Discussed Final Anesthetic Review History of Problems with Anesthesia: No NPO: Yes ASA Class: II Final Preanesthetic Review: Meds/Allgs Chart Reviewed, Consent Obtained/Reviewed and Anes Risks/Benef Reviewed Patient Risk: Low Procedure Risk: Low Anesthetic Plan Anesthetic Plan: GA Disposition: Standard PACU
[2025-03-18 10:32] VITALS: BP 129/70; PULSE 63; RESP 16; TEMP 36.3; O2SAT 96; BMI 20.1
[2025-03-18] MEDS: Lactated Ringers 1,000 ML 80 ML IVCONT (11:18)
--- NOTE | 2025-03-18 12:01 | MHC.SHP ---
Pre-Procedural Eval Section A - 24 Hr Update-Section A only Date of Service: 03/18/25 The patient is an INPATIENT: No Changes since office visit: No Cold of Flu in the past 2 weeks, No New Medical Problems, No Changes in Medication and No Patient answered all questions The patient has been examined within 24 hours of the surgical procedure. The History & Physical has been completed within 30 days and I have reviewed it.: Yes Section B - Complete if H&P > 30 days Chief Complaint: Calculus of ureter Allergies: Allergies Allergy/AdvReac Type Severity Reaction Status Date / Time No Known Allergies Allergy Verified 03/18/25 10:24 Review of Systems Sugical H&P ROS: Negative: Constitution, Cardiovascular, Respiratory, Neurological, Psychiatric, Hem-Onc, Allergic/Immunologic, Gastrointestinal, Genitourinary, Musculoskeletal, Integumentary, Endocrine and Eyes/Ears/Nose/Throat Exam Surgical H&P Exam: Normal: HEENT, Normal: Heart, Normal: Lungs, Normal: Extremities, Normal: Abdomen, Normal: Skin and Normal: Neurological Plan Diagnosis/Plan: Unchanged (Cystoscopy, left retrograde, left ureteroscopy with laser lithotripsy stent placement) I have reviewed the history and physical and performed a pertinent physical examination on my patient. No changes have occurred unless specified. Time Spent With Patient Time: Total time managing care of this patient today ____ minutes.
[2025-03-18] MEDS: levoFLOXacin/D5W 500 MG/100 ML PIGGYBACK 100 MG IV (12:05)
--- NOTE | 2025-03-18 12:34 | P.OP_ITS ---
Operative Note Operative Note Date of Service: 03/18/25 Narrative: PreOperative Diagnosis: Mid left ureteric stone Post Operative Diagnosis: Mid left ureteric stone Procedure: - cystoscopy, left retrograde - left dilatation of ureteric orifice under fluoroscopy - left ureteroscopy, laser lithotripsy, stone basketing - left stent placement Surgeon: Dr Dada Mcarthur Anesthesia: General Indications for procedure: Presentation after ear visit for renal stones. Mid left ureteric stone with hydronephrosis. Procedure: After informed consent was verified the patient was brought to the operating room and placed in a supine position. Anesthesia was administered per protocol. The patient was placed in a modified dorsal lithotomy position and prepped and draped in a sterile fashion. Safety pause time-out and side of surgery were confirmed. Images were available for review. Antibiotic administration confirmed. A 22 Bermudian cystoscope was inserted per urethra. The urethra was without abnormality. The bladder was normal in its entirety. Both ureteric orifices were seen in normal position. Left ureteric orifice normal. The left ureteric orifice was cannulated and a retrograde examination was performed. Filling defects seen at junction between mid and distal ureter. A Sensor guidewire was placed up to the level of the renal pelvis under fluoroscopy. The rigid cystoscope was removed. A Antonia dilator was placed over the Sensor guidewire and used to dilate the ureteric orifice under fluoroscopy. The dilator was removed. The semi rigid ureteral scope was placed alongside the Sensor guidewire. The stone was encountered at that junction between the mid and distal 3rd ureters. Using a 365 micro holmium laser fiber the stone was broken into small pieces using a combination of hammer and dusting techiques. Stone fragments were removed from the ureter using a 2.4 Bermudian ZeroTip basket basket. Once the fragments were removed a decision was made to place a ureteric stent. Based on the height of the patient a 6 Fr x 24 cm stent was used. The string was removed from the stent prior to placement. A 6 Bermudian by 24 cm double-J stent was placed into the renal pelvis and bladder under a combination of fluoroscopy and direct visualization. The symphisis pubis was used as a radiographic marker to release the stent and good coil was seen within the bladder confirming position Proximal positioning of the stent was confirmed using fluoroscopy. The bladder was emptied. The patient tolerated the procedure well and was extubated in the operating room. They were transferred in stable condition to the recovery area. Pathology: stones Drains: Double J stent as described above
[2025-03-18 12:40] VITALS: BP 112/62; PULSE 74; TEMP 36.2; O2SAT 99
[2025-03-18 12:45] VITALS: BP 115/65; PULSE 69; PULSE 72; RESP 16; O2SAT 97; O2SAT 99
[2025-03-18 12:50] VITALS: BP 115/64; PULSE 76; RESP 12; O2SAT 99
[2025-03-18 12:55] VITALS: BP 120/69; PULSE 70; RESP 12; O2SAT 99
[2025-03-18 13:10] VITALS: BP 122/71; PULSE 58; RESP 14; TEMP 36.1; O2SAT 99
== END 2025-03-18 14:04 | disposition home or self-care (01) ==
PROVIDERS: PCP Family Medicine; Visit Provider Urology
PROC: (CPT 52356; principal; 2025-03-18 11:30)
DX: N13.2 Hydronephrosis with renal and ureteral calculous obstruction (principal); M06.9 Rheumatoid arthritis, unspecified; R00.0 Tachycardia, unspecified; Z79.52 Long term (current) use of systemic steroids; Z79.899 Other long term (current) drug therapy; Z98.890 Other specified postprocedural states
CPT/HCPCS: 52356; 82365; 88300; C1758; C1769; C2617; J0131; J1100; J1956; J2003; J2250; J2371; J2405; J2704; J3010; Q9967

== ENCOUNTER → 2025-03-18 10:21 | Outpatient (BNV) | payer OTHER, SELFPAY | PROVIDERS: PCP Family Medicine; Visit Provider Urology | DX: N20.1 Calculus of ureter (principal) | CPT/HCPCS: 52356; 74420 ==

== ENCOUNTER 2025-04-03 10:35 | Outpatient (AMB) | payer OTHER, SELFPAY ==
--- NOTE | 2025-04-03 10:39 | MHC.OFFVIS ---
Intake Visit Reasons: Stent removal Intake Note: Patient is present for STENT REMOVAL Urology Medication:TAMSULOSIN Antibiotic Allergy:NONE Blood Thinner:NONE LOT: [id number] EXP:10/07/27 Plumbing Assembler Required: No Allergies No Known Allergies Allergy (Verified 04/03/25 10:40) HPI Comments Details: Mary is a pleasant female. They are seen for the following urologic conditions - nephrolithiasis Follow-up for stent removal Three-month follow-up ultrasound, [facility]ol[facility], stone labs Nephrolithiasis Mary presents for - initial evaluation for nephrolithiasis, Initial presentation through emergency room late January Presenting symptoms included left flank pain which had been resolved but has recurred in the past few days Imaging - 02/24 CT scan left mild hydro uretero nephrosis with 5 mm proximal ureteric stone, bilateral small stones Laboratory investigations - creatinine 0.75, blood in the urine Stone composition - calcium oxalate monohydrate 75%, carbonate apatite 10% 24 hour urine evaluation - none on file Interventions - none Current therapeutic plan - three-month imaging [facility] Medical History Rheumatoid arthritis Tachycardia Surgical History H/O removal of cyst History of ear surgery H/O bilateral oophorectomy Social History Are you a primary care associate to a significant other at home: No Do you presently have visiting nurse or other home services: No Alcohol intake: current Alcohol intake frequency: a few times a month Patient Tobacco Use Status: Never used Tobacco Review of Systems Const Denies chills and Denies fever(s) Card Reports no additional complaints and Denies syncope Resp Denies cough GI Denies abdominal pain and Denies heartburn Reports as per HPI and Denies change in libido Neuro Denies syncope Psych Denies change in libido Endo Denies change in libido Physical Exam Const General: cooperative, healthy appearing, comfortable and no acute distress Orientation/consciousness: patient oriented x3 HEENT Face and sinus: Yes normal facial exam Mouth: moist mucous membranes Neck Neck: Yes normal visual inspection, Yes full ROM and Yes trachea midline Chest Chest palpation & inspection: normal inspection of the chest Resp Effort & Inspection: normal respiratory effort, able to speak in complete sentences and no respiratory distress GI Inspection: Yes normal to inspection Back/Spine/Pelvis Cervical Spine: normal cervical lordosis Thoracic/Lumbar Spine: thoracic and lumbar spine normal to inspection Skin General skin exam: no rashes or lesions noted Neuro General: patient oriented x3, gait normal, tone normal and moves all extremities Extrem General: Yes normal to inspection and Yes capillary refill normal Office Procedures Cystoscopy Consent Discussed risk and benefit or proposed procedure with the patient. Information consent for procedure given to the patient. Discussed technical aspects, risks, benefits and alternatives in full. Addressed all of the patient's questions and concerns regarding the procedure. The patient demonstrated knowledge and understanding. They wish to proceed with this procedure. Preparation The patient was prepped in the usual manner. A air pollution compliance inspector was present and in the room. Genitalia was prepped with betadine solution in a sterile manner. Lidocaine Jelly 2% was placed into the urethra and 16Fr flexible Olympus cystoscope was inserted into the meatus after adequate lubrication. Procedure A well lubricated 16 Syrian cystoscope was placed No abnormality noted of urethra during placement Indwelling stent seen within bladder emerging from left ureteric orifices The stent was grasped with a 3 prong grasper and removed without difficulty The patient tolerated the procedure well [id number] with stent removal DISPOSABLE SCOPE URO-G FLEXIBLE SCOPE Procedure code (CPT) selection complete Office Meds lidocaine HCl 2 % mucosal jelly in applicator Performing Provider: Dada Mcarthur MD [facility] [place] [facility] Administered by: Michael Dixon LPN on 04/03/25 11:00 Dose Route Admin Location Dispensed Lot Number Expiration Date ND Interior Plant Caretaker 10 mL intra-urethral 10 mL nitrofurantoin monohydrate/macrocrystals 100 mg capsule Performing Provider: Dada Mcarhtur MD Performing Location: [facility] [place] [facility] Administered by: Michael Dixon LPN on 04/03/25 11:00 Dose Route Admin Location Dispensed Lot Number Expiration Date ND Interior Plant Caretaker 100 mg PO 1 cap Results AMB Urinalysis, Automated UA Leukoctes 125 Xander/uL Last Edit by AIRAM Flores on 04/03/25 11:00 UA Nitrite Negative Last Edit by AIRAM Flores on 04/03/25 11:00 UA Urobilinogen 1 mg/dL Last Edit by AIRAM Flores on 04/03/25 11:00 UA Protein 300 mg/dL Last Edit by AIRAM Flores on 04/03/25 11:00 UA pH 6.0 Last Edit by AIRAM Flores on 04/03/25 11:00 UA Blood 200 [place]/uL Last Edit by AIRAM Flores on 04/03/25 11:00 UA Specific [place] 1.025 Last Edit by AIRAM Flores on 04/03/25 11:00 UA Ketone Positive Last Edit by AIRAM Flores on 04/03/25 11:00 UA Bilirubin 1 mg/dL Last Edit by AIRAM Flores on 04/03/25 11:00 UA Glucose 0 mg/dL Last Edit by AIRAM Flores on 04/03/25 11:00 Results Reviewed Results Reviewed: Laboratory Last Values Urine pH (Auto) 6.0 04/03/25 10:52 Specific [place] (Auto) 1.025 04/03/25 10:52 Urine Protein (Auto) 300 mg/dL 04/03/25 10:52 Glucose (UA)(Auto) 0 mg/dL 04/03/25 10:52 Urine Ketones (Auto) Positive 04/03/25 10:52 Urine Blood (Auto) 200 [place]/uL 04/03/25 10:52 Urine Nitrite (Auto) Negative 04/03/25 10:52 Urine Bilirubin (Auto) 1 mg/dL 04/03/25 10:52 Urine Urobilinogen (Auto) 1 mg/dL 04/03/25 10:52 Leukocyte Esterase (Auto) 125 Xander/uL 04/03/25 10:52 Assessment & Plan Assessment & Plan (1) Bilateral nephrolithiasis: Code(s): N20.0 - Calculus of kidney Category: Medical Plan Calcium oxalate monohydrate stones Complete stone evaluation Orders: Orders AMB Urinalysis Automated 04/03/25 Z13.9 - Encounter for screening, unspecified US renal BI 3 Months N20.0 - Calculus of kidney URORISK 04/03/25 N20.0 - Calculus of kidney AMB Cystoscopy 04/03/25 N20.0 - Calculus of kidney Uric Acid 04/03/25 N20.0 - Calculus of kidney Vitamin D 25-OH Total 04/03/25 N20.0 - Calculus of kidney Calcium 04/03/25 N20.0 - Calculus of kidney Magnesium 04/03/25 N20.0 - Calculus of kidney Parathyroid Hormone Intact 04/03/25 N20.0 - Calculus of kidney Medications: New tamsulosin 0.4 mg PO DAILY 14 caps 1RF 14 days N20.0 - Calculus of kidney Patient Instructions: This note is constructed using voice recognition software. While every effort has been made to ensure accuracy freight hustler errors may have been included. Imaging studies, laboratory and physical exam results were discussed and reviewed in detail. No major barriers to patient understanding were identified. An opportunity to ask questions regarding the treatment plan was provided. All questions were answered. The patient expressed understanding and agreement with the above treatment plan. The patient is aware they should contact our office by phone for worsening of their current condition or the appearance of new urologic symptoms. Compliance is encouraged with any medications and followup testing that is ordered. It is a privilege to participate in the urologic care of your patient. If you have any questions or concerns regarding treatment for the above conditions, or other urologic issues, please do not hesitate to contact me. The office telephone contact is [phone]. Sincerely, Dr Dada Mcarthur MD, [facility] - Urology Compassionate Specialist Care for the Genitourinary System Coding Level of Care Code Est Pt Level 3 (65419) Diagnoses Bilateral nephrolithiasis N20.0 CPT Codes Cystoscopy - CPT: 38820-[id number] with stent removal ([id number])
--- OUTSIDE RECORDS SUMMARY | 2025-04-03 11:14 | XMS_ITS | Clinical Summary ---
Author Organization [facility] Address [address] [place] [address] Care Team Providers Care Commercial Singer Name Role Phone Unavailable Primary Care Provider Unavailabl e Medications Medication Sig Dispensed Refills Start Date End Date Status diltiazem (CARTIA XT) 240 MG 24 hr capsule Take by mouth. 0 Acti ve Social History Tobacco Use Types Packs/Day Years Used Date Smoking Tobacco: Never Assessed Sex and Gender Information Value Date Recorded Sex Assigned at Not on file Gender Identity Not on file Sexual Orientation Not on file Plan of Treatment Health Maintenance Due Date Last Done Comments Hepatitis C Screening 1962 COVID-19 Vaccine (#1) 02/06/1963 Depression Screening 1974 Preventative Health Evaluation 1980 DTap / Tdap / Td (1 - Tdap) 1981 Cervical Cancer Screening (P ap Smear) 1983 Colon Cancer Screening (Colonoscopy) 2007 Breast Cancer Screening (Mammogram) 2012 Shingrix-Zoster Vaccine (1 of 2) 2012 Influenza Vaccine (Season Ended) 2025 RSV Adult > 60+ Yrs or Pregn ant (1 - 1-dose 75+ series) 2037 Hepatitis B Vaccines Aged Out No long er eligible based on patient's age to complete this topic Pneumococcal Vaccine Aged Out No long er eligible based on patient's age to complete this topic RSV Ped < 20 months Aged Out No longe r eligible based on patient's age to complete this topic
--- OUTSIDE RECORDS SUMMARY | 2025-04-03 11:14 | XMS_ITS | Patient Health Record ---
Author Organization [facility] alexandre Address [address] [place] [address] Care Team Providers Care Slitter Operator Name Role Phone Mar Whaley Primary Care Provider [phone] Mack Escalante Unavailable [phone] NikhilMitra Unavailable [phone] Mauro Griffin Unavailable [phone] CorrivePreet frazier Unavailable [phone] Allergies No Known Allergies Results Component Value Reference Range Notes Sedimentation Rate-Westergre n-[id number] Reviewed date:02/23/2025 07:06:15 AM Interpretation: Performing Lab:[facility]ozada, [address] [facility], Phone - [phone], Director - Jacklyn Notes/Report: Sedimentation Rate-Westergren 18 0-40 mm/hr C-Reactive Protein, Quant-00 6627 Reviewed date:02/23/2025 07:05:09 AM Interpretation: Performing Lab:[facility] [place], [address] [facility], Phone - [phone], Director - Jacklyn Notes/Report: C-Reactive Protein, Quant 2 0-10 mg/L Kalie Anand CMP14 Default A hand-written panel/profile was received from your office. In accordance with the [facility] Ambiguous Test Code Policy dated April 2003, we have completed your order by using the closest currently or formerly recognized AMA panel. We have assigned Comprehensive Metabolic Panel (14), Test Code #306727 to this request. If this is not the testing you wished to receive on this specimen, please contact the [employer] Client Inquiry/Technical Services Department to clarify the test order. We appreciate your business. Comprehensive Metabolic Pane l ([id number], [facility]) Reviewed date:02/23/2025 07:05:00 AM Interpretation: Performing Lab:Mariajose Lozada, [address] [place], [place], Phone - [phone], Director - Jacklyn Notes/Report: Glucose 91 70-99 mg/dL BUN 12 [...] (SGPT) 24 0-32 IU/L CBC, No Differential/Platele t-[id number] (Use This One) Reviewed date:02/23/2025 07:05:20 AM Interpretation: Performing Lab:Mariajose Lozada, [address] [place], [place], Phone - [phone], Director - Jacklyn Notes/Report: WBC 6.2 3.4-10.8 x10E3/uL RBC 4.27 3.77-5.28 x10E6/uL Hemoglobin 13.5 11.1-15.9 g/dL Hematocrit 40.5 34.0-46.6 % MCV 95 79-97 fL MCH 31.6 26.6-33.0 pg MCHC 33.3 31.5-35.7 g/dL RDW 13.0 11.7-15.4 % Platelets 251 150-450 x10E3/uL T4 and TSH-[id number] Reviewed date:02/23/2025 07:05:29 AM Interpretation: Performing Lab:Mariajose Lozada [address] [facility], Phone - [phone], Director - Jacklyn Notes/Report: TSH 2.790 0.450-4.500 uIU/mL Thyroxine (T4) 8.0 4.5-12.0 ug/dL Lipid Panel-[id number] Reviewed date:03/04/2025 02:48:05 PM Interpretation: Performing Lab:[facility] [place], [address] [facility], Phone - [phone], Director - Jacklyn Notes/Report: Cholesterol, Total 241 100-199 mg/dL Triglycerides 165 0-149 mg/dL HDL Cholesterol 51 >39 mg/dL VLDL Cholesterol Jg 30 5-40 mg/dL LDL Chol Calc (NIH) 160 0-99 mg/dL COMP MET PANEL Reviewed date:05/14/2024 08:48:26 PM Interpretation: Performing Lab: Notes/Report: SODIUM 140 133-146 mmol/L POTASSIUM 5.2 3.3-5.1 mmol/L CHLORIDE 102 96-108 mmol/L CO2 26 21-35 mmol/L BUN 10 6-19 mg/dL CREATININE 0.60 0.5-1.5 mg/dL GLUCOSE 87 70-99 mg/dL ALBUMIN 4.2 3.9-4.8 g/dL TOTAL PROTEIN 7.3 6.5-8.0 g/dL CALCIUM 9.5 8.4-10.3 mg/dL ALKALINE PHOSPHATASE 67 39-117 U/L TOTAL BILIRUBIN 0.3 0.0-1.2 mg/dL AST 17 0-37 U/L ALT 19 0-40 U/L EGFR 102 >59 mL/min/1.73m2 Estimated glomerular filtration rate calculated using the CKD-EPI refit equation. ANION GAP 17 10-20 mmol/L GLOBULIN 3.1 1-4.8 g/dL Sedimentation rate (ESR) Reviewed date:05/14/2024 08:48:30 PM Interpretation: Performing Lab: Notes/Report: ESR 6 0-30 mm/h CRP Reviewed date:05/14/2024 08:48:17 PM Interpretation: Performing Lab: Notes/Report: C REACTIVE PROTEIN <3.0 0.0-4.0 mg/L CBC AND DIFFERENTIAL Reviewed date:05/14/2024 08:48:35 PM Interpretation: Performing Lab: Notes/Report: WBC 7.29 4.00-11.00 K/uL RBC 4.37 3.72-5.30 M/uL HGB 14.1 11.4-15.9 g/dL HCT 44.0 34.2-46.8 % PLT 298 140-430 K/uL MCV 100.7 78.0-97.0 fL MCH 32.3 25.0-33.0 pg MCHC 32.0 32.0-36.0 g/dL RDW 13.0 11.0-16.0 % MPV 11.2 8.4-12.8 fl DIFF METHOD Auto NEUTS 70.3 43.0-75.0 % LYMPHS 20.2 18.2-47.4 % MONOS 7.0 4.00-11.00 % EOS 1.0 0.0-8.0 % BASOS 1.0 0.0-2.0 % GRANULOCYTES, IMMATURE (%) 0.5 0.0-0.9 % ABSOLUTE NEUTS 5.13 1.80-7.70 K/uL ABSOLUTE LYMPHS 1.47 1.00-3.10 K/uL ABSOLUTE MONOS 0.51 0.20-0.80 K/uL ABSOLUTE EOS 0.07 0.00-0.80 K/uL ABSOLUTE BASOS 0.07 0.00-0.09 K/uL GRANULOCYTES, IMMATURE 0.04 0.00-0.05 K/uL COMP MET PANEL Reviewed date:02/27/2025 02:23:11 PM Interpretation: Performing Lab: Notes/Report: SODIUM 137 133-146 mmol/L POTASSIUM 3.9 3.3-5.1 mmol/L CHLORIDE 101 96-108 mmol/L CO2 28 21-35 mmol/L BUN 15 6-19 mg/dL CREATININE 0.50 0.5-1.5 mg/dL GLUCOSE 146 70-99 mg/dL ALBUMIN 4.1 3.9-4.8 g/dL TOTAL PROTEIN 7.0 6.5-8.0 g/dL CALCIUM 9.6 8.4-10.3 mg/dL ALKALINE PHOSPHATASE 63 39-117 U/L TOTAL BILIRUBIN <0.2 0.0-1.2 mg/dL AST 22 0-37 U/L ALT 20 0-40 U/L EGFR 106 >59 mL/min/1.73m2 Estimated glomerular filtration rate calculated using the CKD-EPI refit equation. ANION GAP 12 10-20 mmol/L GLOBULIN 2.9 1-4.8 g/dL 25-OH vitamin D Reviewed date:02/27/2025 02:23:03 PM Interpretation: Performing Lab: Notes/Report: 25 OH VIT D (TOTAL) 50 30-60 ng/mL Sedimentation rate (ESR) Reviewed date:02/27/2025 02:22:59 PM Interpretation: Performing Lab: Notes/Report: ESR 9 0-30 mm/h CRP Reviewed date:02/27/2025 02:23:06 PM Interpretation: Performing Lab: Notes/Report: C REACTIVE PROTEIN <3.0 0.0-4.0 mg/L CBC AND DIFFERENTIAL Reviewed date:02/27/2025 03:24:54 PM Interpretation: Performing Lab: Notes/Report: WBC 7.82 4.00-11.00 K/uL RBC 4.03 4.00-5.20 M/uL HGB 12.8 12.0-16.0 g/dL HCT 38.8 36.0-46.0 % PLT 267 150-450 K/uL MCV 96.3 80.0-100.0 fL MCH 31.8 27.0-31.0 pg MCHC 33.0 32.0-36.0 g/dL RDW 12.9 11.5-14.5 % MPV 11.0 8.4-12.0 fL NRBC 0.00 0.00 /100 WBCs ABSOLUTE NRBC 0.00 0.00 K/uL DIFF METHOD Auto NEUTS 67.6 48.0-76.0 % LYMPHS 23.0 18.0-41.0 % MONOS 6.9 4.0-11.0 % EOS 1.3 0.0-5.0 % BASOS 0.8 0.0-1.5 % GRANULOCYTES, IMMATURE (%) 0.4 0.0-0.9 % ABSOLUTE NEUTS 5.29 1.92-7.60 K/uL ABSOLUTE LYMPHS 1.80 0.72-4.10 K/uL ABSOLUTE MONOS 0.54 0.16-1.10 K/uL ABSOLUTE EOS 0.10 0.00-0.50 K/uL ABSOLUTE BASOS 0.06 0.00-0.15 K/uL GRANULOCYTES, IMMATURE 0.03 0.00-0.09 K/uL Reason For Referral Reason rheumatoid arthritis Diagnosis 1 Rheumatoid arthritis (M06.9) Referral Organization [facility] Referring Provider First Name Mack Referring Provider Last Name Boris Referring Provider Speciality Family [facility] ct[facility] Referred Provider [facility] Referred Provider Specialty Rheumatology General Notes Curtis Napolesidi 01/02 10:50:29 AM > Referral faxed to: [phone] Clinical Notes Provider Name: [facility], Provider ID Number: , Provider UPIN: , Provider , Provider Facility: , Provider Speciality: Rheumatology, Address1: [address] [place] [address], Address2: , [facility], [facility], Zip: [place], [address], , Appt. Date/Time: , Referral Priority Routine Medications Medication SIG (Take, Route, Frequency, Duration) Notes Start Date End Date Status Cardizem CD 240 MG 1 cap(s) orally twice a day Active Diclofenac 1% DIRECTED PRN Active Iron 90 (18 Fe) MG 1 PO BID 45mg A ctive Methotrexate Sodium 2.5 MG 5 tabs orally once a week Active Dexilant 60 MG TAKE 1 CAPSULE BY MOUTH EVERY DAY for 90 Active Caltrate 600+D Plus Minerals 600-800 MG-UNIT 1 tab(s) orally 2 times a day for 30 day(s) Not-Taking Tamsulosin HCl 0.4 MG 1 capsule Orally Once a day Active Hydroxychloroquine Sulfate 200 MG 1 tab(s) orally once a day Active Folic Acid 1 MG 1 tab(s) orally once a day Active Immunizations Vaccine Route Administration Date Status Comme nts DTaP Vaccine, History Unknown 1962 Administered DTaP Vaccine, History Unknown 1962 Administered DTaP Vaccine, History Unknown 1962 Administered DTaP Vaccine, History Unknown 02/21/1968 Administered H1N1 injection, history Unknown 09/11/2009 Administered Flu Vaccine; History Unknown 09/11/2009 Administered Flu Vaccine; History Unknown 07/16/2013 Administered Flu Vaccine; History Unknown 10/27/2016 Administered TB Test history ID Intradermal 10/19/2000 Administered MMR, vaccine history Unknown 05/31/1963 Administered MMR, vaccine history Unknown 02/12/1964 Administered MMR, vaccine history Unknown 01/06/1977 Administered OPV Vaccine; History Unknown 1962 Administered OPV Vaccine; History Unknown 01/18/1963 Administered OPV Vaccine; History Unknown 10/21/1965 Administered Td vaccine history Unknown 03/03/1999 Administered Tdap vaccine history Unknown 01/04/2007 Administered Tdap vaccine history Unknown 10/14/2008 Administered Varivax vaccine (history) Unknown 12/22/1965 Administer ed Zostavax vaccine history Unknown 11/07/2012 Administere d TDAP >7 PURCHASED (ADACEL) IM Intramuscular 03/29/2019 Adm inistered FLULAVAL PURCHASED IM Intramuscular 07/12/2019 Administere d FLUBLOK PURCHASED IM Intramuscular 08/14/2020 Administered COVID Vacc BIVALENT 12+ Pfizer IM Intramuscular 07/09/2022 Administered FLUBLOK PURCHASED IM Intramuscular 07/16/2022 Administered FLUZONE PURCHASED IM Intramuscular 07/29/2023 Administered COVID VACC 19+ PFIZER PURCHASED IM Intramuscular 08/12/2023 Administered COVID VACC 19+ PFIZER PURCHASED IM Intramuscular 06/22/2024 Administered Flu Vaccine; History Unknown 08/03/2024 Administered Shingrix, history Unknown 01/04/2025 Administered Problems Problem Type SNOMED Code ICD Code Onset Dates Problem Status W/U Status Risk Notes Problem Hyperlipidemia (59293380) Hyperlipidemia, unspecified (E78.5) Active confirmed Problem Insomnia not due to a substance or known physiological condition, other (F51.09) Active confirmed Problem Gastroesophageal reflux disease with esophagitis (149646864) GERD with esophagitis (K21.0) Active confirmed Problem Menopause (875219751) Menopausal and female climacteric states (N95.1) Active confirmed Problem 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, 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 Problem Hyperlipidemia (17351583) Hyperlipidemia unspecified (E78.5) Active confirmed Problem Osteoporosis (95413861) Osteoporosis NOS (M81.0) Active confirmed Problem Rheumatoid arthritis (98799599) Rheumatoid arthritis (M06.9) Active confirmed Problem Macrocytosis (396396582) Macrocytosis (D75.89) Active confirmed Problem Gastroesophageal reflux disease with esophagitis (disorder) (700471452) Gastro-esophageal reflux disease with esophagitis, without bleeding (K21.00) Active confirmed Vital Signs Temperature 97.0 degrees Fahrenheit 04/01/2025 Oximetry 97 04/01/2025 Blood pressure diastolic 64 mm Hg 04/01/2025 Height 63.75 in 01/25/2025 Blood pressure systolic 106 mm Hg 04/01/2025 Weight 117.4 lbs 04/01/2025 BMI 20.31 kg/m2 01/25/2025 Encounters Encounter Location Date Provider Diagnosis [address] [address] 06/22/2024 Mauro OSMANcheryle Encounter for immunization Z23 [place] [address] [place] [address] 04/01/2025 Mack Escalante Hyperlipidemia unspecified E78.5 and Rheumatoid arthritis M06.9 [place] [address] [place] [address] 04/19/2024 Mar Jovana Fatigue R53.83 [place] [address] [place] [address] 06/16/2024 Mitra Nikhil URI J06.[address] [address] 09/04/2024 Preet Corriveau Nausea R11.0 ; Diarrhea NOS R19.7 ; Bloating R14.0 and Rheumatoid arthritis M06.[address] [address] 01/25/2025 Mack Escalante Adult physical NITISH L Z00.00 ; Mammogram, Routine Z12.31 and Rheumatoid arthritis M06.9 [place] [address] [place] [address] 10/02/2024 Mack Escalante [place] [address] [place] [address] 03/04/2025 Mack Escalante [place] [address] [place] [address] 04/01/2025 Mack Escalante Hyperlipidemia unspecified E78.5 Assessments Encounter Date Diagnosis (ICD Code) Assessment Notes Treatment Notes Treatment Clinical Notes Section Notes 06/22/2024 Encounter for immunization (ICD-10 - Z23) covid 04/01/2025 Hyperlipidemia unspecified (ICD-10 - E78.5) LDL 160. 10 year PREVENT risk 4.4%, discussed further risk stratification with lp(a) and apoB. Also discussed CAC testing. Patient interested in further assessment , ordered. Also reviewed lifestyle , nutrition, etc 04/19/2024 Fatigue (ICD-10 - R53.83) 06/16/2024 URI (ICD-10 - J06.9) Resolved, neg for COVID. Reviewed possible she had covid given partner sick at same time and tested positive. Reviewed CDC guidelines and masking, etc. f/u prn 09/04/2024 Nausea (ICD-10 - R11.0) 09/04/2024 Diarrhea NOS (ICD-10 - R19.7) -Likely viral etiology. Pt does report some blood in stool once. Defers rectal exam today, will monitor and f/up if persists. No recent travel, afebrile. Denies abd pain. Exam unremarkable. -Discussed supportive care options: Can use Imodium AD 2 mg up to 4 times daily for diarrhea and BRAT diet. Explained BRAT diet is banana, rice, apples/applesauce and toast and is intended to replace potassium and add fiber for bulk. AVOID ALL DAIRY while you are feeling ill. Smoothies can be a helpful way to get calories in. You may also want to consider a probiotic. If nausea becomes a significant feature of your illness there are medicaitons we can prescribe to help. -Advised to call immediately or activate EMS/911 if abdominal pain or cramping become severe, or with blood in BMs, high fever not responsive to fever-reducing medications. -Should plan to f/up later this week or early next if lack of improvement. 01/25/2025 Adult physical NORMAL (ICD-10 - Z00.00) see below Plans to schedule appt for pap when due 01/25/2025 Mammogram, Routine (ICD-10 - Z12.31) Past due for screening. 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 Labs ordered. Condition stable 09/04/2024 Rheumatoid arthritis (ICD-10 - M06.9) -On hydroxychloroquine and methotrexate 01/25/2025 Other [facility] flow sheet reveiwed and updated Plan Of Treatment Pending Test Test Name Order Date Colonoscopy 02/14/2017 Colonoscopy 03/29/2018 HEMOGLOBIN A1C 12/20/2023 PAP, cervical; HPV Hybrid Capture High R isk DNA Probe any Dx 09/14/2022 PAP, cervical; HPV Hybrid Capture High R isk DNA Probe any Dx 02/14/2017 Mammogram, routine annual screening 03/04 Mammogram, routine annual screening 01/31 Mammogram, routine annual screening 03/04 COMPREHENSIVE METABOLIC PANL -[id number] 12/01 FERRITIN 09/14/2022 IRON & TIBC 09/14/2022 COMPREHENSIVE METABOLIC PANL 03/29/2019 COMPREHENSIVE METABOLIC PANL 09/14/2022 LIPID PANEL 03/29/2019 TSH WITH REFLEX TO T4 09/14/2022 TSH WITH REFLEX TO T4 03/29/2019 Vitamin D25 OH 03/29/2019 CBC AUTO DIFF 07/27/2017 CBC AUTO DIFF 03/29/2019 CBC AUTO DIFF 09/14/2022 COLOGUARD 12/20/2023 COMP MET PANEL 01/25/2025 LIPID PANEL 12/20/2023 Folate 12/20/2023 Vitamin B12 12/20/2023 COLONOSCOPY 04/03/2021 CBC w/Differential 12/20/2023 Covid-19 PCR (use this one) 12/12/2021 Coronary Artery Calcium Score 04/01/2025 Urine Culture, Routine-[id number] ([facility]) 02/28/2024 Lipoprotein (a)-654466 04/01/2025 Apolipoprotein B-[id number] 04/01/2025 Next Appt Details Provider Name:Mitra Tejeda, 09/16/2025 04:30:00 PM, [address] [place] [address], [phone], Provider Name:Mack Escalante, 0 01/29/2026 04:00:00 PM, [address] [place] [address], [phone], Insurance Providers Payer Name Payer Address Payer Phone Subscriber Number Group Number Insured Name Patient Relationship to Insured Coverage Start Date Coverage End Date [facility] [place] [address] [id number] RAJ LEONIDAS Self - patient is the insured Medical (General) History Medical History History ICD Code Rheumatoid arthritis -- [place], MARIO ALBERTO Rheumatology Sinus tachycardia on CCB -- [facility] rdiology Immunocompromised Osteoporosis s/p reclast (last BMD 1, T score -2.8 spine) Hearing loss -- Dr Ryan Huff, [facility] 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 R ear surgery for hearing loss 1979 Hospitalization History Reason Date(Month/Year) [facility] for uroscopy 03/18
--- OUTSIDE RECORDS SUMMARY | 2025-04-03 11:14 | XMS_ITS ---
Author Name [facility] Organization Unknown Care Team Organization Name Specialty Phone Email Start Date End [facility] 08/17/2023
--- OUTSIDE RECORDS SUMMARY | 2025-04-03 11:14 | XMS_ITS | Data Portability ---
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 Plan of Treatment Reminders Order Date Submit Date Provider Last Modified By Organization Details Last Modified Time Details Appointments None recorded. Lab urinalysis , dipstick 2014 015 [email or web address] In-Office Order, Internal Use Only DO Not Attach Compendium DO Not Attach Compendium, Do Not Delete/merge, [id number] 5 08:43:35 fecal occult blood, stool 2014 015 [email or web address] In-Office Order, Internal Use Only DO Not Attach Compendium DO Not Attach Compendium, Do Not Delete/merge, [id number] 5 08:43:35 Referral None recorded. Procedures None recorded. Surgeries None recorded. Imaging MAMMO, screening, digital, bilateral 2014 015 [email or web address] [facility] [place], [address] [facility] [facility] [address], [place], [address], 5 08:39:01 Medication Orders Vivelle-Do t 0.075 mg/24 hr transderma l patch 2014 015 INTERFACE [employer], [employer], [address] [place], [place], [id number], 5 08:48:21 Prometrium 200 mg capsule 2014 015 INTERFACE [employer], [employer], [address] [place], [place], [id number], 08:48:23 Patient TargetsNo targets recorded. Patient Instructions Encounter Date Encounter Id Patient Instructions Last Modified By Organization Details Last Modified Time 03/31/2015 [id number] Patient had a no rmal exam today. Advise yearly check up, a Pap smear is no longer indicated at every year's check up if normal with negative HPV. Advise yearly mammogram starting age 40 and if dense breasts then also breast ultrasound. Colonoscopy screening starting age 50 then every 10 years for low risk patients, sooner per your Networking Technology Instructor if higher risk. DEXA bone density screening starting age 60-65, then every several years. Fasting lipid panel by your PCP every 5 years starting age 45, those with risk factors starting at younger age. Advise moderate exercise and diet for weight control, calcium with Vit D and weight bearing exercise for bone health. Report any breast changes. Report any abnormal bleeding in the pre or julianna-menopause or any bleeding after menopause. Reviewed gil of contraception until menopause. All questions answered. [email or web address] Not available 03/31/2015 08:20:15 Reason for Referral None Reported. Results Created Date Observation Date Name Description Value Unit Range Abnormal Flag Note LastModifiedBy Organization Detail LastModifiedTime 03/31/2003/31/2015 fecal occul t blood , stool Occult Blood negati ve Not Available In-Office Order Internal Use Only DO Not Attach Compendium DO Not Attach Compendium, Do Not Delete/merge, [id number] 03/31/2015 08:41:41 03/31/2003/31/2015 urina lysis , dipst ick Leukocytes Negati ve Not Available In-Office Order Internal Use Only DO Not Attach Compendium DO Not Attach Compendium, Do Not Delete/merge, [id number] 03/31/2015 08:28:10 03/31/2003/31/2015 urina lysis , dipst ick Nitrite negati ve Not Available In-Office Order Internal Use Only DO Not Attach Compendium DO Not Attach Compendium, Do Not Delete/merge, [id number] 03/31/2015 08:28:10 03/31/2003/31/2015 urina lysis , dipst ick Urobilinogen Normal : 0.2 mg/dl Not Available In-Office Order Internal Use Only DO Not Attach Compendium DO Not Attach Compendium, Do Not Delete/merge, [id number] 03/31/2015 08:28:10 03/31/2003/31/2015 urina lysis , dipst ick Protein Negati ve Not Available In-Office Order Internal Use Only DO Not Attach Compendium DO Not Attach Compendium, Do Not Delete/merge, [id number] 03/31/2015 08:28:10 03/31/2003/31/2015 urina lysis , dipst ick pH 5.0 Not Available In-Office Order Internal Use Only DO Not Attach Compendium DO Not Attach Compendium, Do Not Delete/merge, 03/31/2015 08:28:10 03/31/2003/31/2015 urina lysis , dipst ick Blood Negati ve Not Available In-Office Order Internal Use Only DO Not Attach Compendium DO Not Attach Compendium, Do Not Delete/merge, 03/31/2015 08:28:10 03/31/2003/31/2015 urina lysis , dipst ick Specific Kiron 1.015 Not Available In-Off ice Order Internal Use Only DO Not Attach Compendium DO Not Attach Compendium, Do Not Delete/merge, 03/31/2015 08:28:10 03/31/2003/31/2015 urina lysis , dipst ick Ketone Negati ve Not Available In-Office Order Internal Use Only DO Not Attach Compendium DO Not Attach Compendium, Do Not Delete/merge, 03/31/2015 08:28:10 03/31/2003/31/2015 urina lysis , dipst ick Bilirubin Negati ve Not Available In-Office Order Internal Use Only DO Not Attach Compendium DO Not Attach Compendium, Do Not Delete/merge, 03/31/2015 08:28:10 03/31/2003/31/2015 urina lysis , dipst ick Glucose Negati ve Not Available In-Office Order Internal Use Only DO Not Attach Compendium DO Not Attach Compendium, Do Not Delete/merge, 03/31/2015 08:28:10 03/31/20 15 03/31/2015 urina lysis , dipst ick Appearance Clear Not Available In-Offi ce Order Internal Use Only DO Not Attach Compendium DO Not Attach Compendium, Do Not Delete/merge, [id number] 03/31/2015 08:28:10 03/31/20 15 03/31/2015 urina lysis , dipst ick Color Yellow Not Available In-Office Order Internal Use Only DO Not Attach Compendium DO Not Attach Compendium, Do Not Delete/merge, [id number] 03/31/2015 08:28:10 05/15/20 19 12/09/2011 MAMMO , scree donald, digit al, bilat eral, w/ CAD No observ ation record ed. [email or web address] Not Available 05/15 11:01:15 Result Notes None recorded. Problems Name Problem SNOMED Code Status Onset Date Resolution Date Notes Provider Name and Address Organization Details Recorded Time Arthritis 0133925 Active 013 Not Available [facility] 5 02:19:13 Problem Notes None recorded. Procedures Surgical History Date Name Laterality Status Provider Name and Address Organization Details Recorded Time 5 F1P-GYE completed Marjan Brooks [place] - [facility] 03/31/2015 08:20:15 5 S8R-[id number] completed GARCIA GALLOWAY MD [address] [place] [address], [address] Floor, [place], [address], [place] [facility] 03/31/2015 08:41:11 5 H6V-AEO completed Marjan Brooks [place] - [facility] 03/31/2015 08:20:15 5 [id number] completed [facility] 03/31/2015 08:20:15 5 [id number] completed Marjan Brooks [place] - [facility] 03/31/2015 08:20:15 4 Date of Last Pap Smear completed Che Lu [place] - [facility] 03/28/2015 08:45:15 03/08/201 2 Date of Last Mammogram completed [facility] 03/28/2015 08:51:34 4 Laparotomy completed [facility] 01/13/2017 10:45:05 Imaging Results None recorded. Procedure Notes None recorded. Medical Equipment None Reported. Allergies Allergen ID Allergen Name Allergen Category Reaction Reaction Severity Criticality Documentation Date Start Date Code Code System Note Provider Name and Address Organization Details Recorded Time 714334 No known allergy (situatio n) Not available Not available Not available Not available 01/25/20152012 70129 6003 SNOMED Not Available [facility] 5 14:33:35 Medications Name Sig Start Date Stop Date Status Note LastModified by Organization Details LastModified Time Prometrium 200 mg capsule TAKE 1 CAPSULE (200MG) BY ORAL ROUTE EVERY DAY FOR 12 DAYS EVERY 3 MONTHS active Not Available Not Available No t Available cyclobenzapr ine 10 mg tablet active Not Available Not Available Not Available azithromycin 250 mg tablet active Not Available Not Available Not Available betamethason e, augmented 0.05 % topical cream active Not Available Not Available Not Available acetaminophe n 300 mg-codeine 30 mg tablet active Not Available Not Available Not Available methotrexate sodium 2.5 mg tablet takes 3 a week active Not Available Not Available No t Available prednisone 1 mg tablet TAKE 4 TABLET BY ORAL ROUTE EVERY DAY active Not Available Not Available No t Available folic acid 1 mg tablet TAKE 1 TABLET BY ORAL ROUTE EVERY DAY active Not Available Not Available No t Available hydroxychlor oquine 200 mg tablet TAKE 1 TABLET BY ORAL ROUTE 2 TIMES EVERY DAY active Not Available Not Available No t Available Vivelle-Dot 0.075 mg/24 hr transdermal patch APPLY 1 PATCH BY TRANSDERMAL ROUTE 2 TIMES EVERY WEEK 2016 active Not Available Not Available Not Avai lable rizatriptan 5 mg disintegrati ng tablet active Not Available Not Available No t Available fluticasone propionate 50 mcg/actuatio n nasal spray,suspen kiran active Not Available Not Available Not Available iron ER 325 mg (65 mg iron) capsule,exte nded release active Not Available Not Available Not Available Vitamin D3 10 mcg (400 unit) capsule active Not Available Not Available Not Available Voltaren 1 % topical gel active Not Available Not Available Not Available Dexilant 60 mg capsule, delayed release TAKE 1 CAPSULE BY ORAL ROUTE EVERY DAY FOR 8 WEEKS active Not Available Not Available Not Available Afluria 45 mcg (15 mcg x 3)/0.5 mL intramuscula r suspension active Not Available Not Available Not Available Vitals Date Recorded Body weight Body mass index (BMI) Body height Systolic blood pressure Diastolic blood pressure Provider Name and Address Organization Details Last Updated DateTime 03/31/2015 16449.38 5001 g 19.5 kg/m2 165.1 cm 114 mm[Hg] 62 mm[Hg] Marjan Brooks [facility] 5 08:20:15 Social History Question Answer Notes LastModified by [employer] Details LastModified Time Tobacco Smoking Status Never Smoker Marjan robertson [facility] 03/31/2015 08:26:28 Is Blood Transfusion Acceptable In An Emergency? Yes Information not available 03/31/2015 Do You Feel Safe At Home? Yes Information not available 03/31/2015 Do You Use Protection During Sex? Always Information not available 03/31/2015 General Stress Level Low Information not available 03/31/2015 Sex: Unknown Functional Status Question Answer Note LastModified by [employer] Details LastModified Time What is your level of alcohol consumption? 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 Information not available 03/31/2015 What is your exercise level? Occasional Walk Information not available 03/31/2015 Mental Status Question Answer Note LastModified by Organization D etails LastModified Time Do you have difficulty concentrating, remembering or making decisions? No Information no t available 03/31/2015 Family History Relationship Description Onset Age of this Age Resolved Age Notes LastModified by Organization Details LastModified Time Father Diabetes mellitus [email or web address] Not available 2014 08:29:58 Mother Type B viral hepatitis [email or web address] Not available 2014 08:29:58 Medical History Condition Response Arthritis Y Gynecological History Statement/Question Response Abnormal Pap N Date of Last Mammogram 12/09/2011 Breast Biopsy N STIs/STDs N Endometriosis N Current Control Method None Age at Menarche Fibroids N Age at First Child Uterine Cancer N Ovarian Cancer N Date of Last Colonoscopy Breast Cancer N Date of last DEXA Frequency of Cycle (Q days) Sexually Active? N Bladder Problems N Sexual Problems? N Date of Last Pap Smear 10/16/2013 Hormone Replacement Therapy Y Obstetrics History GPAL:G 0 P 0 0 0 0 Past Encounters Encounter ID Performer Location Encounter Start Date Encounter Closed Date Diagnosis/Indication Diagnosis SNOMED-CT Code Diagnosis ICD10 Code Diagnosis Note [id number] GARCIA GALLOWAY MD [facility]1 [address] [id number] 03/31/2015 07:51:17 03/31/2015 08:42:51 Gynecologic examination [id number] Health Concerns Section Related Observation LastModified by Organization Detai ls LastModified Time None Recorded Concern Status LastModified by Organization Details LastModified Time None Recorded Advance Directives Directive None Recorded Payers Insurance Date Sequence Insurance Name Policy Number Policy Johnson Covered Member ID Johnson Member ID Guarantor Name 01/31/2017 1 [facility] [id number] 1 Mary Morrow [id number] Mary Morrow 10/06/2016 1 [facility] [id number] Mary Morrow [id number] Mary Morrow OBGyn Episode No OBEpisode recorded.
== END 2025-04-03 11:42 | disposition home or self-care (01) ==
LOC: HO.HUSH 10:35
PROVIDERS: Visit Provider Urology
DX: N20.0 Calculus of kidney (principal); Z13.9 Encounter for screening, unspecified; Z96.0 Presence of urogenital implants
CPT/HCPCS: 52310; 99213

== ENCOUNTER → 2025-04-03 10:35 | Outpatient (BNVA) | payer OTHER, SELFPAY | PROVIDERS: Visit Provider Urology | DX: N20.0 Calculus of kidney (principal) | CPT/HCPCS: 52310; 81003 ==

== ENCOUNTER 2025-06-26 16:17 | Outpatient (REF) | payer OTHER, SELFPAY ==
--- OUTSIDE RECORDS SUMMARY | 2024-12-21 12:15 | XMS_ITS ---
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 Name Role Phone Mar Whaley Primary Care Provider Mack Escalante Unavailable [phone] REASON FOR VISIT Shingles 1, flu & covid UTD-JM, due for shingrix #1, checked MIIS-JM Encounters Encounter Location Date Provider Diagnosis [place] [address] [place] [address] 12/21/2024 Mar Whaley Plan Of Treatment Next Appt Details Provider Name:Mitra Frausto Nikhil, 09/16/2025 04:30:00 PM, [address] [place] [address], [phone], Provider Name:Mack Escalante, 0 01/29/2026 04:00:00 PM, [address] [place] [address], [phone], Progress Notes * NATHAN ANTHONYADOB:1960 ( 64 yo F)Acc No.[id number]:12/21/2024 Progress Note Patient: LEONIDAS ROSSI Provider: Manish Whaley MD :1960 A ge:64 Y S ex:Female Date:12/21/2024 C HN#:[id number] Address:[address] [place] [id number] Subjective: * Chief Complaints: * S hingles 1flu & covid UTD-JMdue for shingrix #1, checked MIIS- Billing Information: * Procedure Codes: Care Plan Details* * Electronic signature of Carla Whaley MD on 06/26/2025 at 06:06 PM EDT Sign off status: Pending * Provider: Manish Whaley MD Date: 0 12/21/2024 Generated for Jeovanny velasquez/Leatha/Wilton on: 0 06/26/2025 06:06 PM EDT
--- NOTE | ~2025-06-26 | US_ITS ---
EXAMINATION: US RETROPERITONEAL LIMITED (RENAL ONLY) CLINICAL INFORMATION: Calculus of kidney. N20.0. COMPARISON: Correlated to CT abdomen pelvis dated January 27, 2025 TECHNIQUE: Real-time ultrasound kidneys using grayscale technique. FINDINGS: RIGHT KIDNEY: 11 x 4 x 5 cm (SAG x AP x TRV). Normal echotexture. Renal cortical thickness is normal. No hydronephrosis. There are multiple and multifocal hyperechoic lesion centered the corticomedullary junction/peripheral pelvicalyceal system, the largest measures 4 m. LEFT KIDNEY: 12 x 5 x 4 cm (SAG x AP x TRV). Normal echotexture. Renal cortical thickness is normal. No hydronephrosis. 4 mm hyperechoic structure in the lower pole. US/US renal BI IMPRESSION: Bilateral nonobstructing nephrolithiasis, largest measures 4 mm.. Electronically signed by: Jermain Stephenson MD 06/27/2025 07:05 AM EDT
--- OUTSIDE RECORDS SUMMARY | 2025-06-26 18:06 | XMS_ITS | Encounter Summary ---
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 Not on regina e 01/28/2023 Are you concerned about learning? Not on file 01/28/2023 No 01/28/2023 No 01/28/2023 Digital Access Answer Date Recorded No 02/26/2023 No 02/26/2023 Reliable internet access at home? Not on file 02/26/2023 Device with a working camera? Not on file Comments Unknown Sex and Gender Information Value Date Recorded Sex Assigned at Not on file Legal Sex Female 10:34 PM EDT Gender Identity Not on file Sexual Orientation Not on file documented as of this encounter Plan of Treatment Upcoming Encounters Date Type Department Care Team (Late st Contact Info) Description 10/29/2025 4:00 PM EST Office Visit Jamal Mcdonnell [facility] Rheumatology [address] [place] [address] Nadia Christianson DO [address], [address] [place] [address] [email or web address] documented as of this encounter Visit Diagnoses Not on filedocumented in this encounter Care Teams Livestock Haulier Relationship Specialty Start Date End Date Mar Whaley MD [address] [place] [id number] [email or web address] PCP - General Family Medicine 08/10/18 documented as of this encounter Additional Source Comments The information contained in this document represents components of the legal health record. It is not the complete legal health record.[facility]
--- OUTSIDE RECORDS SUMMARY | 2025-06-26 18:07 | XMS_ITS | Clinical Summary ---
Author Organization [facility] Address [address] [facility] [address] [place] [phone] Phone Care Team Providers Care Supervisor Beehive Kiln Name Role Phone Mar Whaley MD Primary Care Provider + Allergies No known active allergies Medications Medication-Free Text 2 (two) times a day. 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 65 tablet 1 02/28/20 25 Active dilTIAZem (CARDIZEM CD) 240 MG 24 hr capsuleIndicatio ns:Medication refill,Tachycard ia TAKE 1 CAPSULE (240 MG TOTAL) BY MOUTH 2 (TWO) TIMES A DAY. 180 capsule 3 06/11/20 25 Active hydroxychloroqui ne (PLAQUENIL) 200 mg tabletIndication s:Rheumatoid arthritis involving multiple sites with positive rheumatoid factor TAKE 1 TABLET BY MOUTH EVERY DAY 90 tablet 06/10/20 25 Active Medication-Free Text 2 (two) times a day. Calcium 600-400 MG-UNIT Tablet Chewable, Sig: Orally 025 Discontinued(No longer taking) dilTIAZem (CARDIZEM CD) 240 MG 24 hr capsuleIndicatio ns:Medication refill,Tachycard ia TAKE 1 CAPSULE (240 MG TOTAL) BY MOUTH 2 (TWO) TIMES A DAY. 180 capsule 3 06/11/20 24 025 Discontinued hydroxychloroqui ne (PLAQUENIL) 200 mg tabletIndication s:Rheumatoid arthritis involving multiple sites with positive rheumatoid factor TAKE 1 TABLET BY MOUTH EVERY DAY 90 tablet 1 12/07/19 25 025 Discontinued predniSONE (DELTASONE) 5 MG tablet Take by mouth - 4 tabs/d x 4 days, 3 tabs/d x 3 days, 2 tabs/d x 2 days, 1 tab x 1 day - as needed for flares 30 tablet 3 02/27/20 25 025 Discontinued(No longer taking) Hospital, Clinic, or Other Facility Administered Medication Ordered Dose Route Frequency Start Date End Date Status triamcinolone acetonide (KENALOG-40) 40 mg/mL injection 20 mgIndications:Primary osteoarthritis involving multiple joints 20 mg IAtc Once 06/13/2025 06/13/2025 Ended Active Problems Problem Noted Date Diagnosed Date Localized osteoporosis witho ut current pathological fracture 01/29/2024 Assessment & Plan (01/29/2024 8:42 PM EDT): Osteoporosis on daily calcium and vitamin D. She has received Reclast in the past. Will contact [facility] to inquire when her last Reclast infusion was. Rheumatoid arthritis involvi ng multiple sites with positive rheumatoid factor 06/22/2023 Assessment & Plan (05/14/2024 12:00 PM EDT): Seropositive rheumatoid arthritis well-controlled on methotrexate 5 tablets weekly, Plaquenil daily and folic acid daily. She has no active synovitis. Sent her for some labs today. Assessment & Plan (01/29/2024 8:40 PM EDT): Seropositive rheumatoid arthritis well-controlled on methotrexate 5 tablets weekly, daily folic acid and Plaquenil. She has fullness and swelling to the right ring PIP which I injected with triamcinolone. Assessment & Plan (06/22/2023 5:16 PM EDT): Seropositive rheumatoid arthritis well-controlled on methotrexate 5 tablets weekly, daily folic acid and a daily Plaquenil. I will try and request her eye exam report. Advised her to get both the flu vaccine and the updated COVID-19 booster since she is immunosuppressed. She will come in to have labs done sometime next week. Primary osteoarthritis involving multiple joints 06/22/2023 Assessment & Plan (05/14/2024 12:01 PM EDT): Osteoarthritis in multiple joints on occasional ibuprofen and topical Voltaren gel. Assessment & Plan (01/29/2024 8:41 PM EDT): This in multiple joints with no current swelling. She can take Tylenol 650 mg as needed. Assessment & Plan (06/22/2023 5:14 PM EDT): Osteoarthritis in multiple joints, with a flare in the left ring PIP joint. She prefers not to get another injection today, but can reconsider if if the puffiness worsens. She can try applying topical diclofenac gel to the area. Bilateral plantar fasciitis 06/22/2023 Assessment & Plan (06/22/2023 5:15 PM EDT): She has classic symptoms of plantar fasciitis in both feet, with pain resolving after a few steps in the morning. Suggested she use a golf ball to stretch the fascia in the feet before she gets out of bed. Chronic left-sided low back pain without sciatic a 06/22/2023 Assessment & Plan (06/22/2023 5:22 PM EDT): She has low back pain with associated left iliotibial band syndrome. I gave her some low back stretching exercises which should help with the lower back as well as with the hip and ITB pain. Palpitations 12/26/2018 Assessment & Plan (08/02/2022 3:29 PM EDT): See above plan. On the diltiazem, her palpitations are controlled. Assessment & Plan (11/21/2019 3:44 PM EST): History of palpitations reported during her previous visits. She denies any over the past several months. I recommended that she continues to abstain from EtOH, caffeine and other stimulants, attempt stress reduction. EKG today without any ectopy. Assessment & Plan (12/26/2018 4:08 PM EDT): She had palpitations for a couple of days. It sounds like these were PVCs. They have since resolved. I have suggested that she call our office if they return so that we can get a Holter monitor. She does not drink alcohol or caffeine. Attempt stress reduction. Tachycardia 2018 Assessment & Plan (08/02/2022 3:29 PM EDT): She has a history of sinus tachycardia and palpitations. She has been taking diltiazem 240 mg twice daily and is tolerating this dose. Today, her heart rate is normal. She will continue to take her current dose of diltiazem. Follow-up 1 year. Assessment & Plan (11/21/2019 3:49 PM EST): History of inappropriate sinus tachycardia syndrome. Has been on diltiazem 240 mg twice daily for at least 2 years. Tolerating high dose without any side effects. EKG today shows sinus rhythm. She denies any recent episodes of tachycardia. I will obtain an echocardiogram to evaluate function, rule out any tachycardia associated myopathy and development of any structural abnormalities. Assessment & Plan (12/26/2018 4:03 PM EDT): She has inappropriate sinus tachycardia syndrome and is followed by Dr. Anne. She has been doing well for a long time on diltiazem. Rheumatoid arthritis of hand 2018 Peptic ulcer disease 2018 Encounters Date Type Department Care Team Description 06/13/2025 4:30 PM EDT Office Visit [facility] [address] [place] [address] Brittany Madden MD Rheumatoid arthritis involving multiple sites with positive rheumatoid factor (Primary Dx); Primary osteoarthritis involving multiple joints; Localized osteoporosis without current pathological fracture; Chronic left-sided low back pain without sciatica; High risk medications (not anticoagulants) long-term use; Immunosuppression due to drug therapy 06/13/2025 Telephone [facility] [address] [place] [address] Brittany Madden MD Appointment 06/08/2025 Refill [facility] [address] [place] [address] Miri Rogers MD Medication Refill 06/08/2025 Refill [facility] [address] [place] [address] [address], [address] [place] [address] Toáms Davenport MD Medication Refill from Last 3 Months Immunizations Immunization Administration Dates Next Due Influenza Recombinant Quadrivalent Preservative Free IM 08/14/2020 Family History Medical History Relation Comments Heart failure Father natural causes hepatitis c Mother No Known Problems Sister Relation Status Comments Father Mother Sister Alive Social History Tobacco Use Types Packs/Day Years [...] on file Sexual Orientation Not on file Last Filed Vital Signs Vital Sign Reading Time Taken Comments Blood Pressure 118/60 06/13/2025 4:17 PM EDT Pulse 82 06/13/2025 4:17 PM EDT Temperature - - Respiratory Rate - - Oxygen Saturation 98% 06/13/2025 4:17 PM EDT Inhaled Oxygen Concentration - - Weight 53.7 kg (118 lb 6.4 oz) 06/13/2025 4:17 P M EDT Height 162.6 cm (5' 4 ) 05/14/2024 11:24 AM EDT Body Mass Index 20.32 05/14/2024 11:24 AM EDT Plan of Treatment Upcoming Encounters Date Type Department Care Team (Late st Contact Info) Description 10/29/2025 4:00 PM EST [facility] [address] [place] [address] Nadia Christianson, [address] [facility], [address] [place] [address] [email or web address] Health Maintenance Due Date Last Done Comments Adult Td,Tdap Booster 1962 LIPID PANEL 1962 DEPRESSION SCREENING 1974 HIV ONE-TIME SCREENING (18-65 YEARS) 1980 PNEUMOCOCCAL VACCINES (50+ years) (1 of 2 - PCV) 1981 PAP SMEAR 1983 MAMMOGRAM 2002 COLOGUARD 2007 COLONOSCOPY 2007 COLORECTAL CANCER SCREENING 2007 FIT TEST 2007 FOBT 2007 SIGMOIDOSCOPY 2007 VIRTUAL COLONOSCOPY 2007 RSV VACCINE (1 - Risk 60-74 years 1-dose series) 2022 INFLUENZA VACCINE (#1) 2025 , 07/29/2023, 07/16/2022, Additional history exists COVID-19 VACCINE (8 - Pfizer risk 2023- season) 2025 06/22/2024, 08/12/2023, 07/09/2022, Additional history exists HEPATITIS C SCREENING Completed 11/23/2023 ZOSTER VACCINES Completed 05/31/2025, 01/04/2025 SMOKING STATUS SCREENING (Once After 26 Yrs) Completed 06/13/2025 HEPATITIS A VACCINES Aged Out No long er eligible based on patient's age to complete this topic HIB VACCINES Aged Out No longer eligi ble based on patient's age to complete this topic MENINGOCOCCAL VACCINES (ACWY) Aged Out No longer eligible based on patient's age to complete this topic MENINGOCOCCAL VACCINES (B) Aged Out N o longer eligible based on patient's age to complete this topic Medical Devices Not on file Procedures Procedure Name Priority Date/Time Associated Diagnosis Comments HEPATITIS C ANTIBODY, QUALITATIVE Routine 11/23/2023 11:02 AM EST Rheumatoid arthritis involving multiple sites with positive rheumatoid factor from Last 3 Months or Most Recently Relevant to Health Maintenance Results * Hepatitis C antibody, qualitative (11/23/2023 11:02 AM EST) HCV NON-REACTIV E NON-REACTI VE [facility] Blood 11/23/2023 11:0 2 AM EST 11/23/2023 11:07 AM EST us Mook Green MD LAB BLOOD ORDERABLES Fi nal Result Performing Organization Address City/State/[facility] Co de Phone Number [facility] [address] [place] [address] from Last 3 Months or Most Recently Relevant to Health Maintenance Insurance [facility] [place] [id number] [place] [address] [facility] [id number] [place] [address] [id number] [place] [id number] [place], [place] [address]O [facility] H[facility] Care Teams Supervisor Beehive Kiln Relationship Specialty Start Date End Date Mar Whaley MD [address] [place] [phone] maria del PCP - General Family Medicine 08/10/18 Additional Source Comments The information contained in this document represents components of the legal health record. It is not the complete legal health record.[facility]
--- OUTSIDE RECORDS SUMMARY | 2025-06-26 18:07 | XMS_ITS | Clinical Summary ---
Author Organization [facility] Address [address] [place] [address] Care Team Providers Care Network Infrastructure Architect Name Role Phone Unavailable Primary Care Provider [...] Vaccine (1 of 2) 2012 Influenza Vaccine (#1) 2025 RSV Adult > 60+ Yrs or [...]
--- OUTSIDE RECORDS SUMMARY | 2025-06-26 18:07 | XMS_ITS | Patient Health Record ---
Author Organization [facility] alexandre Address [address] [place] [address] Care Team Providers Care Clipper Machine Name Role Phone Mar Whaley Primary Care Provider [phone] Mack Escalante Unavailable [phone] Mauro Griffin Unavailable [phone] Preet Gonzales Unavailable [phone] Allergies No Known Allergies Results Component Value Reference Range Flag Notes Sedimentation Rate-Westergre [id number] Reviewed date:02/23/2025 07:06:15 AM Interpretation: Performing Lab:Asterionazael Lozada, [address] [facility], Phone - [phone], Director - MDJodry Notes/Report: Sedimentation Rate-Westergren 18 0-40 mm/hr C-Reactive Protein, Quant-00 [id number] Reviewed date:02/23/2025 07:05:09 AM Interpretation: Performing Lab:[facility] [place], [address] [facility], Phone - [phone], Director - MDJodry Notes/Report: C-Reactive Protein, Quant 2 0-10 mg/L Kalie Anand CMP14 Default A hand-written panel/profile was received from your office. In accordance with the [facility] Ambiguous Test Code Policy dated April 2003, we have completed your order by using the closest currently or formerly recognized AMA panel. We have assigned Comprehensive Metabolic Panel (14), Test Code #212108 to this request. If this is not the testing you wished to receive on this specimen, please contact the [facility] Client Inquiry/Technical Services Department to clarify the test order. We appreciate your business. Comprehensive Metabolic Pane l ([id number], [place]) Reviewed date:02/23/2025 07:05:00 AM Interpretation: Performing Lab:Mariajose Lozada, Zohra [facility], Phone - [phone], Director - MDSagrariodry Notes/Report: Glucose 91 70-99 mg/dL BUN 12 [...] (SGPT) 24 0-32 IU/L CBC, No Differential/Platele t-[id number] (Use This One) Reviewed date:02/23/2025 07:05:20 AM Interpretation: Performing Lab:Mariajose Lozada, Zohra [facility], Phone - [phone], Director - MDSagrariodry Notes/Report: WBC 6.2 3.4-10.8 x10E3/uL RBC 4.27 3.77-5.28 x10E6/uL Hemoglobin 13.5 11.1-15.9 g/dL Hematocrit 40.5 34.0-46.6 % MCV 95 79-97 fL MCH 31.6 26.6-33.0 pg MCHC 33.3 31.5-35.7 g/dL RDW 13.0 11.7-15.4 % Platelets 251 150-450 x10E3/uL T4 and TSH-[id number] Reviewed date:02/23/2025 07:05:29 AM Interpretation: Performing Lab:Mariajose Lozada, Zohra [facility], [place], Phone - [phone], Director - Jacklyn Notes/Report: TSH 2.790 0.450-4.500 uIU/mL Thyroxine (T4) 8.0 4.5-12.0 ug/dL Lipid Panel-[id number] Reviewed date:03/04/2025 02:48:05 PM Interpretation: Performing Lab:[facility] [place], [address], [place], Phone - [phone], Director - Jacklyn Notes/Report: Cholesterol, Total 241 100-199 mg/dL H Triglycerides 165 0-149 mg/dL H HDL Cholesterol 51 >39 mg/dL VLDL Cholesterol Jg 30 5-40 mg/dL LDL Chol Calc (NIH) 160 0-99 mg/dL H MM Digital Mammo Screening Reviewed date:06/24/2025 01:03:15 PM Interpretation: Performing Lab: Notes/Report: PROCEDURE: MM Digital Mammo Screening INDICATION: Screening. No known palpable abnormalities. COMPARISON: Comparison is made to prior relevant studies in PACS. TECHNIQUE: Bilateral full-field digital CC and MLO 3D tomosynthesis was performed. Computer-aided detection (CAD) was utilized in the interpretation of this study. DENSITY: The breasts are heterogeneously dense, which may obscure small masses. FINDINGS: No suspicious masses, suspicious microcalcifications, or areas of architectural distortion. IMPRESSION: No mammographic evidence of malignancy. RECOMMENDATION: Annual mammographic screening. BI-RADS: 1 (Negative) Lay letter mailed to patient WSN: [id number] Ordering Physician: Mar Whaley Dictated By: Joselin Lucas MD PANEL Reviewed date:02/27/2025 02:23:11 PM Interpretation: Performing Lab: Notes/Report: SODIUM 137 133-146 mmol/L POTASSIUM 3.9 3.3-5.1 mmol/L CHLORIDE 101 96-108 mmol/L CO2 28 21-35 mmol/L BUN 15 6-19 mg/dL CREATININE 0.50 0.5-1.5 mg/dL GLUCOSE 146 70-99 mg/dL H ALBUMIN 4.1 3.9-4.8 g/dL TOTAL PROTEIN 7.0 6.5-8.0 g/dL CALCIUM 9.6 8.4-10.3 mg/dL ALKALINE PHOSPHATASE 63 39-117 U/L TOTAL BILIRUBIN <0.2 0.0-1.2 mg/dL AST 22 0-37 U/L ALT 20 0-40 U/L EGFR 106 >59 mL/min/1.73m2 Estimat ed glomerular filtration rate calculated using the CKD-EPI refit equation. ANION GAP 12 10-20 mmol/L GLOBULIN 2.9 1-4.8 g/dL CRP Reviewed date:02/27/2025 02:23:06 PM Interpretation: Performing Lab: Notes/Report: C REACTIVE PROTEIN <3.0 0.0-4.0 mg/L CBC AND DIFFERENTIAL Reviewed date:02/27/2025 03:24:54 PM Interpretation: Performing Lab: Notes/Report: WBC 7.82 4.00-11.00 K/uL RBC 4.03 4.00-5.20 M/uL HGB 12.8 12.0-16.0 g/dL HCT 38.8 36.0-46.0 % PLT 267 150-450 K/uL MCV 96.3 80.0-100.0 fL MCH 31.8 27.0-31.0 pg H MCHC 33.0 32.0-36.0 g/dL RDW 12.9 11.5-14.5 [...] 0.00-0.15 K/uL GRANULOCYTES, IMMATURE 0.03 0.00-0.09 K/uL CT Heart W/O Dye Kyle Eval Reviewed date:06/12/2025 01:50:33 PM Interpretation: Performing Lab: Notes/Report: CT Heart W/O Dye Kyle Eval INDICATION: E78.5 HYPERLIPIDEMIA. Female of age 64 , race White COMPARISON: None TECHNIQUE: Coronary artery Calcium Scoring. After a localizing industrial therapist image was obtained, an ECG-gated noncontrast exam was obtained of the heart in late diastole. The region of interest was limited to the heart in order to optimize image quality. Weight-based protocol using automatic tube modulation was used to optimize exposure parameters. A Danlan 64 scanner was used, with Agatston scoring performed using Field Agent) web-based software. This procedure is not being performed on this patient for preoperative evaluation for low-risk surgery within 30 days. CTDIvol Body: 4.32 mGy, DLP Body: 78 mGy*cm. FINDINGS: Coronary Calcium Scoring Summary: Left Main: Score 0 . LAD: Score 11 . Circumflex: Score 0 . Right: Score 0 . Ramus: Score 0 . TOTAL: Score 11 . Non-coronary Findings: No significant findings. IMPRESSION: 1. No significant incidental findings. 2. The Agatston coronary calcium score is 11 . The observed calcium score is at the 67 percentile (SALGUERO). The Multi-Ethnic Study of Atherosclerosis (SALGUERO) trial on-line calculator can be used to determine the probability of having coronary calcification and the calcium score percentile for subjects based on age, gender and race/ethnicity who are free of clinical cardiovascular disease and treated diabetes: http://www.salguero-nhlbi.org/Calcium/input.aspx WSN: [id number] Ordering Physician: Mack Escalante Dictated By: Crystal BRYANT, Valerie Alberto 25-OH vitamin D Reviewed date:02/27/2025 02:23:03 PM Interpretation: Performing Lab: Notes/Report: 25 OH VIT D (TOTAL) 50 30-60 ng/mL Sedimentation rate (ESR) Reviewed date:02/27/2025 02:22:59 PM Interpretation: Performing Lab: Notes/Report: ESR 9 0-30 mm/h Reason For Referral Reason rheumatoid arthritis Diagnosis 1 Rheumatoid arthritis (M06.9) Referral Organization [facility] Referring Provider First Name Mack Referring Provider Last Name Boris Referring Provider Speciality Family [facility] ctice Referred Provider [facility] Referred Provider Specialty Rheumatology General Notes Maricarmen Napoles 01/02 10:50:29 AM > Referral faxed to: [phone] Clinical Notes Provider Name: [facility], Provider ID Number: , Provider UPIN: , Provider , Provider Facility: , Provider Speciality: Rheumatology, Address1: [address] [place] [address], Address2: , City, [facility], Zip: [place], [address], , Appt. Date/Time: , Referral Priority Routine Medications Medication SIG (Take, Route, Frequency, Duration) Notes Start Date End Date Status Cardizem CD 240 MG Capsule Extended Release 24 Hour 1 cap(s) orally twice a day Active Diclofenac 1% DIRECTED PRN Active Iron 90 (18 Fe) MG Tablet 1 PO BID 45mg Active Methotrexate Sodium 2.5 MG Tablet 5 tabs orally once a week Active Dexilant 60 MG Capsule Delayed Release TAKE 1 CAPSULE BY MOUTH EVERY DAY; Duration: 90 Active Caltrate 600+D Plus Minerals 600-800 MG-UNIT Tablet 1 tab(s) orally 2 times a day; Duration: 30 day(s) Not-Taking/PRN Tamsulosin HCl 0.4 MG Capsule 1 capsule Orally Once a day Active Hydroxychloroquine Sulfate 200 MG Tablet 1 tab(s) orally once a day Active Folic Acid 1 MG Tablet 1 tab(s) orally once a day Active Immunizations Vaccine Route Administration Date Status Comme nts Zostavax vaccine history Unknown 11/07/2012 Administere d Varivax vaccine (history) Unknown 12/22/1965 Administer ed Tdap vaccine history Unknown 01/04/2007 Administered Tdap vaccine history Unknown 10/14/2008 Administered TDAP >7 PURCHASED (ADACEL) IM Intramuscular 03/29/2019 Adm inistered Td vaccine history Unknown 03/03/1999 Administered TB Test history ID Intradermal 10/19/2000 Administered Shingrix, history Unknown 01/04/2025 Administered OPV Vaccine; History Unknown 1962 Administered OPV Vaccine; History Unknown 01/18/1963 Administered OPV Vaccine; History Unknown 10/21/1965 Administered MMR, vaccine history Unknown 05/31/1963 Administered MMR, vaccine history Unknown 02/12/1964 Administered MMR, vaccine history Unknown 01/06/1977 Administered H1N1 injection, history Unknown 09/11/2009 Administered FLUZONE PURCHASED IM Intramuscular 07/29/2023 Administered FLULAVAL PURCHASED IM Intramuscular 07/12/2019 Administere d FLUBLOK PURCHASED IM Intramuscular 08/14/2020 Administered FLUBLOK PURCHASED IM Intramuscular 07/16/2022 Administered Flu Vaccine; History Unknown 09/11/2009 Administered Flu Vaccine; History Unknown 07/16/2013 Administered Flu Vaccine; History Unknown 10/27/2016 Administered Flu Vaccine; History Unknown 08/03/2024 Administered DTaP Vaccine, History Unknown 1962 Administered DTaP Vaccine, History Unknown 1962 Administered DTaP Vaccine, History Unknown 1962 Administered DTaP Vaccine, History Unknown 02/21/1968 Administered COVID Vacc BIVALENT 12+ Pfizer IM Intramuscular 07/09/2022 Administered COVID VACC 19+ PFIZER PURCHASED IM Intramuscular 08/12/2023 Administered COVID VACC 19+ PFIZER PURCHASED IM Intramuscular 06/22/2024 Administered Social History Social History Social History Social Info Question Answer Notes Smoking: Former Smoker: No Second Hand Smoke: No Additional Details Category Social Info Options Details Social History Occupation: [employer] , [employer] [employer] Alcohol: a beer or two a week Drug use: denies Caffeine: None Pets: Dogs:1 , Cats:1 , chickens Scientologist: none lives [facility] alice partner Section Notes: sleep: difficulty staying asleep, wakes hourly. Falls asleep ok initially and in the night diet: varied, no red meat sleep: difficulty staying asleep, wakes hourly. Falls asleep ok initially and in the night diet: varied, no red meat sleep: difficulty staying as leep, wakes hourly. Falls asleep ok initially and in the night sleep: difficulty staying asleep, wakes hourly. Falls asleep ok initially and in the night diet: varied, no red meat sleep: difficulty staying asleep, wakes hourly. Falls asleep ok initially and in the night diet: varied, no red meat sleep: difficulty staying asleep, wakes hourly. Falls asleep ok initially and in the night diet: varied, no red meat sleep: difficulty staying asleep, wakes hourly. Falls asleep ok initially and in the night diet: varied, no red meat sleep: difficulty staying asleep, wakes hourly. Falls asleep ok initially and in the night diet: varied, no red meat sleep: difficulty staying asleep, wakes hourly. 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, 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 Problem Hyperlipidemia (28520957) Hyperlipidemia unspecified (E78.5) Active confirmed Problem Osteoporosis (18629574) Osteoporosis NOS (M81.0) Active confirmed Problem Rheumatoid arthritis (51862922) Rheumatoid arthritis (M06.9) Active confirmed Problem Macrocytosis (306728904) Macrocytosis (D75.89) Active confirmed Problem Gastroesophageal reflux disease with esophagitis (disorder) (819981828) Gastro-esophageal reflux disease with esophagitis, without bleeding (K21.00) Active confirmed Vital Signs Temperature 97.0 degrees Fahrenheit 04/01/2025 Oximetry 97 04/01/2025 Blood pressure diastolic 64 mm Hg 04/01/2025 Height 63.75 in 01/25/2025 Blood pressure systolic 106 mm Hg 04/01/2025 Weight 117.4 lbs 04/01/2025 BMI 20.31 kg/m2 01/25/2025 Encounters Encounter Location Date Provider Diagnosis [facility] [address] [address] 09/04/2024 Preet Corriveau Nausea R11.0 ; Diarrhea NOS R19.7 ; Bloating R14.0 and Rheumatoid arthritis M06.[address] [facility] [address] [address] 01/25/2025 Mack Escalante Adult physical NITISH L Z00.00 ; Mammogram, Routine Z12.31 and Rheumatoid arthritis M06.9 [facility] [address] [place] [address] 04/01/2025 Mack Escalante Hyperlipidemia unspecified E78.5 and Rheumatoid arthritis M06.9 [place] [address] [place] [address] 10/02/2024 Mack Escalante [facility] [address] [place] [address] 03/04/2025 Mack Escalante [facility] [address] [place] [address] 04/01/2025 Mack Escalante Hyperlipidemia unspecified E78.5 [place] [address] [place] [address] 05/08/2025 Mack Escalante [place] [address] [place] [address] 06/12/2025 Mar Whaley Assessments Encounter Date Diagnosis (ICD Code) Assessment Notes Treatment Notes Treatment Clinical Notes Section Notes 01/25/2025 Mammogram, Routine (ICD-10 - Z12.31) Past due for screening. Patient has HW sheet with number to call to schedule 01/25/2025 Adult physical NORMAL (ICD-10 - Z00.00) see below Plans to schedule appt for pap when due 04/01/2025 Hyperlipidemia unspecified (ICD-10 - E78.5) 09/04/2024 Diarrhea NOS (ICD-10 - R19.7) -Likely [...] or early next if lack of improvement. 09/04/2024 Nausea (ICD-10 - R11.0) 04/01/2025 Hyperlipidemia unspecified (ICD-10 - E78.5) LDL 160. 10 year PREVENT risk 4.4%, discussed further risk stratification with lp(a) and apoB. Also discussed CAC testing. Patient interested in further assessment , ordered. 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 Labs ordered. Condition stable 09/04/2024 Rheumatoid arthritis (ICD-10 - M06.9) -On hydroxychloroquine and methotrexate 01/25/2025 Other [facility] flow sheet reveiwed and updated Plan Of Treatment Pending Test Test Name Order Date Colonoscopy 03/29/2018 Colonoscopy 02/14/2017 HEMOGLOBIN A1C 12/20/2023 PAP, cervical; HPV Hybrid Capture High R isk DNA Probe any Dx 02/14/2017 PAP, cervical; HPV Hybrid Capture High R isk DNA Probe any Dx 09/14/2022 Mammogram, routine annual screening 01/31 Mammogram, routine annual screening 03/04 Mammogram, routine annual screening 03/04 COMPREHENSIVE METABOLIC PANL -[id number] 12/01 FERRITIN 09/14/2022 IRON & TIBC 09/14/2022 COMPREHENSIVE METABOLIC PANL 09/14/2022 COMPREHENSIVE METABOLIC PANL 03/29/2019 LIPID PANEL 03/29/2019 TSH WITH REFLEX TO T4 03/29/2019 TSH WITH REFLEX TO T4 09/14/2022 Vitamin D25 OH 03/29/2019 CBC AUTO DIFF 03/29/2019 CBC AUTO DIFF 09/14/2022 CBC AUTO DIFF 07/27/2017 COLOGUARD 12/20/2023 COMP MET PANEL 01/25/2025 LIPID PANEL 12/20/2023 Folate 12/20/2023 Vitamin B12 12/20/2023 COLONOSCOPY 04/03/2021 CBC w/Differential 12/20/2023 Covid-19 PCR (use this one) 12/12/2021 Coronary Artery Calcium Score 04/01/2025 Urine [facility], [id number] 02/28/2024 Lipoprotein (a)-037237 04/01/2025 Apolipoprotein B-[id number] 04/01/2025 Next Appt Details Provider Name:Mitra Tejeda, 09/16/2025 04:30:00 PM, [address] [place] [address], [phone], Provider Name:Mack Escalante, 0 01/29/2026 04:00:00 PM, [address] [place] [address], [phone], Insurance Providers Payer Name Payer Address Payer Phone Subscriber Number Group Number Insured Name Patient Relationship to Insured Coverage Start Date Coverage End Date [facility] [place] [address] [phone] [id number] LEONIDAS ANTHONY Self - patient is the insured Medical (General) History Medical History History ICD Code Rheumatoid arthritis -- [place], [facility] Rheumatology Sinus tachycardia on CCB -- [facility] rdiology Immunocompromised Osteoporosis s/p reclast (last BMD 1, T score -2.8 spine) Hearing loss -- Dr Ryan Huff, [facility] 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 ovaries removed 2007 gum surgery 03/2020 uroscopy 03/18/2025 Hospitalization History Reason Date(Month/Year) [facility] for uroscopy 03/18
== END 2025-06-26 16:18 | disposition home or self-care (01) ==
LOC: HO.US 16:17
PROVIDERS: Visit Provider Urology
DX: N20.0 Calculus of kidney (principal)
CPT/HCPCS: 76775

== ENCOUNTER → 2025-06-26 16:21 | Outpatient (BNV) | payer OTHER, SELFPAY | PROVIDERS: Visit Provider Radiology Diagnostic Radiology | DX: N20.0 Calculus of kidney (principal) | CPT/HCPCS: 76775 ==

== ENCOUNTER 2025-07-09 15:03 | Outpatient (AMB) | payer OTHER, SELFPAY ==
--- OUTSIDE RECORDS SUMMARY | 2025-07-04 13:15 | XMS_ITS ---
Author Organization [facility] a[facility] Address [address] [place] [address] Care Team Providers Care Sewer Contractor Name Role Phone Mar Whaley Primary Care Provider Mack Escalante Unavailable [phone] Allergies No Known Allergies REASON FOR VISIT since 06/04/25L. big toe nail cracked w/hole, red, infection? , pain with touch Medications Medication SIG (Take, Route, Frequency, Duration) Notes Start Date End Date Status Cephalexin 500 MG Tablet 1 tablet Orally three times a day; Duration: 5 days take w food 07/04/2025 Active Ciclopirox 8 % Solution 1 application Externally Once a day; Duration: 90 days apply to affected nails 07/04/2025 Active Dexilant 60 MG Capsule Delay ed Release TAKE 1 CAPSULE BY MOUTH EVERY DAY; Duration: 90 Active Diclofenac 1% DIRECTED PRN Active Methotrexate Sodium 2.5 MG Tablet 5 tabs orally once a week Active Iron 90 (18 Fe) MG Tablet 1 PO BID 45mg Active Folic Acid 1 MG Tablet 1 tab(s) orally o nce a day Active Hydroxychloroquine Sulfate 2 00 MG Tablet 1 tab(s) orally once a day Active Cardizem CD 240 MG Capsule Extended Release 24 Hour 1 cap(s) orally twice a day Active Tamsulosin HCl 0.4 MG Capsule 1 capsule Orally Once a day Active Social History Social History Social History Social Info Question Answer Notes Smoking: Former Smoker: No Second Hand Smoke: No Additional Details Category Social Info Options Details Social History Occupation: [employer] , [employer] Alcohol: a beer or two a week Drug use: denies Caffeine: None Pets: Dogs:1 , Cats:1 , chickens Baptist: none lives [facility] partner Section Notes: sleep: difficulty staying asleep, wakes hourly. Falls asleep ok initially and in the night diet: varied, no red meat Vital Signs Temperature 97.5 degrees Fahrenheit 07/04/20 25 Blood pressure systolic 116 mm Hg 07/04/20 25 Blood pressure diastolic 68 mm Hg 025 Oximetry 96 07/04/2025 Encounters Encounter Location Date Provider Diagnosis [facility] [address] [place] [address] 07/04/2025 Mack Escalante Osteoporosis NOS M81 .0 ; Pain toe(s), left M79.675 and Onychomycosis B35.1 Assessments Encounter Date Diagnosis (ICD Code) Assessment Notes Treatment Notes Treatment Clinical Notes Section Notes 07/04/2025 Osteoporosis NOS (ICD-10 - M81.0) followed by specialist, on reclast, new DEXA report faxed to specialist as they have the prior to compare 07/04/2025 Pain toe(s), left (ICD-10 - M79.675) Ongoing toe pain to L 1st toe x4 weeks but now with new redness surrounding and increased tenderness , concern for potential early localized infection. Begin keflex, reviewed proper use/side effects. Discussed tinea pedis is another possiblilty but less likely given appearance and no notable burning sensation. Will trial the keflex, if no improvement need close follow up and consider lamisil. call back sooner if any worsening. Exam not suggestive of gout or vascular compromise 07/04/2025 Onychomycosis (ICD-10 - B35.1) she has chronic toenail fungus. Cannot use oral antifungal given she is on MTX. She would like to try topical option. Obinna sent, reviewed proper use and advised can take up to 30 weeks Plan Of Treatment Medication Medication Name Sig Start Date Stop Date Notes Cephalexin 500 MG Tablet 1 tablet Orally three times a day; Duration: 5 days 07/04/2025 Ciclopirox 8 % Solution 1 application Ex ternally Once a day; Duration: 90 days 07/04/2025 Treatment Notes Assessment Notes Osteoporosis NOS followed by speciali st, on reclast, new DEXA report faxed to specialist as they have the prior to compare Pain toe(s), left Ongoing toe pain to L 1st toe x4 weeks but now with new redness surrounding and increased tenderness , concern for potential early localized infection. Begin keflex, reviewed proper use/side effects. Discussed tinea pedis is another possiblilty but less likely given appearance and no notable burning sensation. Will trial the keflex, if no improvement need close follow up and consider lamisil. call back sooner if any worsening. Exam not suggestive of gout or vascular compromise Onychomycosis she has chronic toen ail fungus. Cannot use oral antifungal given she is on MTX. She would like to try topical option. Obinna greenberg, reviewed proper use and advised can take up to 30 weeks Next Appt Details Follow Up: as sched, Reason: Provider Name:Mitra Frausto Nikhil, 09/16/2025 04:30:00 PM, [address] [place] [address], [id number], Provider Name:Mack Escalante, 0 01/29/2026 04:00:00 PM, [address] [place] [address], [phone], History and Physical Notes * HPI (History of Present Illness) Category Sub-Category Detail Notes Category Not es Interim History 64 year old female presents for toenail issue on R foot . Reports nail is cracked. First noticed 1 month ago. it doesnt hurt all the time but painful if dog steps on it. Also can hurt at rest. Has noticed increased redness along to toe for past week. No fevers, chills Reports she has longstanding toenail fungus to big toe of R foot. Thinks that led to crack in nail. No history of diabetes or vascular issues. No numbness or burning Also had recent DEXA scan, shows evidence of osteoporosis. Her rhuematolgoist has prescribed reclast for management of osteoporosis Examination Category Sub-Category Detail Notes Category Not es General Examination HEENT: Head - NC/AT, clear c onjunctiva Neck, Thyroid : supple Lungs: No use of accessory muscles, no audible wheezes, no stridor Extremities: no clubbing, no zachary a General Appearance: Well appearing and i n no acute distress Skin Lips and nail beds p ink, onychomycosis to toenails of L foot most prominent on 1st toe, the distal aspect of 1st toenail appears cracked with small hole like deformity, no abnormal pigmentation to nail/nailbed observed, to medial aspect of nailbed and to proximal aspect there is erythema without induration, fluctance or discharge/warmth, tenderness to palpation of area Neurologic Exam: non-focal exam, aler t and oriented x 3 Musculoskeletal Normal gait and stat ion, full AROM of toes/feet bilaterally Progress Notes * NATHAN ANTHONYADOB:1960 ( 64 yo F)Acc No.[id number]:07/04/2025 Progress Note Patient: LEONIDAS ROSSI Provider: BIRGIT Lopez :1960 A ge:64 Y S ex:Female Date:07/04/2025 c #:[id number] Address:[address] [place], [place] [phone] Pcp:Mar Whaley Subjective: * Chief Complaints: * s mik 06/04/25L. big toe nail cracked w/hole, red, infection? , pain with touch * HPI: I nterim History: 64 year old female presents for toenail issue on R foot . Reports nail is cracked. First noticed 1 month ago. it doesnt hurt all the time but painful if dog steps on it. Also can hurt at rest. Has noticed increased redness along to toe for past week. No fevers, chills Reports she has longstanding toenail fungus to big toe of R foot. Thinks that led to crack in nail.? No history of diabetes or vascular issues. No numbness or burning Also had recent DEXA scan, shows evidence of osteoporosis. Her rhuematolgoist has prescribed reclast for management of osteoporosis. * ROS: S ee HPI. Other systems reviewed and noncontributory except for as noted above . * Medical History: Rheumatoid arthritis - [place], [facility] Rheumatology Sinus tachycardia on CCB - [facility] Immunocompromised Osteoporosis s/p reclast (last BMD 06/11/21, T score -2.8 spine) Hearing loss - Dr Ryan Huff, [facility] Arthritis in left foot History of Bleeding ulcers Anemia Menopause early 50s COVID-19+ (05/03/23) PV Dermatology annually PAP (09/2022): NILM, TZ present, HPV neg; repeat 5 years MAMMOGRAM: last 2020, OVERDUE COLOGUARD (01/25/24): normal; repeat 3 years ECHO (02/2024): EF 60%, mild MR, mod TR kidney stones - lithotripsy w stent 2024 - [facility] urology Medical History Verified * Surgical History: R ear surgery for hearing loss 1979 ovarian cysts removed 2003 or 2002? ovaries removed 2007 gum surgery 03/2020 uroscopy 03/18/2025 Surgical History verified. * Hospitalization/Major Diagno stic Procedure: [facility] for uroscopy 03/18/2025 Hospitalization Verified. * Family History: F ather: , diagnosed with Diabetes, Hypertension. M other: . P aternal Grand Father: . P aternal Grand Mother: . M aternal Grand Father: . Maternal Grand Mother: . S iblings: alive. 1 sister(s) . . F amily History Verified.. * Social History: Noris cavazos: [employer] , lives wih partner. Smoking Smart Form A re you a:: nonsmoker. S moking: no F ormer Smoker: N o, S econd Hand Smoke: N o. A lcohol: a beer or two a week. Drug use: denies. 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 Baptist: none. Caffeine: None. Pets: Dogs:1 , Cats:1 , chickens. Social History Verified. sleep: difficulty staying asleep, wakes hourly. Falls asleep ok initially and in the night diet: varied, no red meat. * Medications: T akingTamsulosin HCl 0.4 MG Capsule 1 capsule Orally Once a day Hydroxychloroquine Sulfate 200 MG Tablet 1 tab(s) [...] twice a day Diclofenac 1% DIRECTED PRN Dexilant 60 MG Capsule Delayed Release TAKE 1 CAPSULE BY MOUTH EVERY DAY Taking Tamsulosin HCl 0.4 MG Capsule 1 capsule Orally Once a day Taking Hydroxychloroquine Sulfate 200 MG Tablet 1 tab(s) [...] day Taking Diclofenac 1% DIRECTED PRN Taking Dexilant 60 MG Capsule Delayed Release TAKE 1 CAPSULE BY MOUTH EVERY DAY DiscontinuedCaltrate 600+D Plus Minerals 600-800 MG-UNIT Tablet 1 tab(s) orally 2 times a day Medication List reviewed and reconciled with the patientDiscontinued Caltrate 600+D Plus Minerals 600-800 MG-UNIT Tablet 1 tab(s) orally 2 times a day Medication List reviewed and reconciled with the patient * Allergies: N .KBethAllergies Verified. Objective: * Vitals: I nitials:TW, Temp: 97.5 F, Temp Route: T, HR: 55 /min, PulseOx: 96, BP: 116/68 mm Hg. * Examination: G eneral Examination: General Appearance: W ell appearing and in no acute distress. S kin L ips and nail beds pink, onychomycosis to toenails of L foot most prominent on 1st toe, the distal aspect of 1st toenail appears cracked with small hole like deformity, no abnormal pigmentation to nail/nailbed observed, to medial aspect of nailbed and to proximal aspect there is erythema without induration, fluctance or discharge/warmth, tenderness to palpation of area.?HEENT: H ead - NC/AT, clear conjunctiva. N nain, Thyroid : s upple. L ungs: N o use of accessory muscles, no audible wheezes, no stridor. E xtremities: n o clubbing, no edema. N eurologic Exam: n on-focal exam, alert and oriented x 3. M usculoskeletal N ormal gait and station, full AROM of toes/feet bilaterally. Assessment: * Assessment: 1. P ain toe(s), left - M79.675 (Primary) 2 . O steoporosis NOS - M81.0? 3. O nychomycosis - B35.1 Plan: * Treatment: 2. O steoporosis NOS Notes: followed by specialist, on reclast, new DEXA report faxed to specialist as they have the prior to compare 3. O nychomycosis Start Ciclopirox Solution, 8 %, 1 application, Externally, Once a day apply to affected nails, 90 days, 1, Refills 1. Notes: she has chronic toenail fungus. Cannot use oral antifungal given she is on MTX. She would like to try topical option. Obinna sent, reviewed proper use and advised can take up to 30 weeks ? * Follow Up: marybel boyer Billing Information: * Visit Code: 01974 Office Visit, Established Pt. Care Plan Details* * Electronic signature of Mack Escalante PA-C on 07/09/2025 at 06:18 PM EDT Sign off status: Pending * Provider: BIRGIT Lopez Date: Generated for Jeovanny velasquez/Leatha/eTransmitting on: 06:18 PM EDT
--- OUTSIDE RECORDS SUMMARY | 2025-07-08 12:30 | XMS_ITS ---
Author Organization [facility] a[place]re Address [address] [place] [address] Care Team Providers Care Parking Station Attendant Name Role Phone Mar Whaley Primary Care Provider Mack Escalante [phone] REASON FOR VISIT great toe pain (l) foot Encounters Encounter Location Date Provider Diagnosis [facility] [address] [place] [phone] 07/08/2025 Mar Whaley Plan Of Treatment Next Appt Details Provider Name:Mitra Frausto Nikhil, 09/16/2025 04:30:00 PM, [address] [place] [address], [phone], Provider Name:Mack Escalante, 0 01/29/2026 04:00:00 PM, [address] [place] [address], [phone], Progress Notes * NATHAN ANTHONYADOB:1960 ( 64 yo F)Acc No.[id number]:07/08/2025 Progress Note Patient: LEONIDAS ROSSI Provider: Manish Whaley MD :1960 A ge:64 Y S ex:Female Date:07/08/2025 C HN#:[id number] Address: [id number] Subjective: * Chief Complaints: * G reat toe pain (l) foot Care Plan Details* * Electronic signature of Carla Whaley MD on 07/09/2025 at 06:18 PM EDT Sign off status: Pending * Provider: Manish Whaley MD Date: 1 Generated for Jeovanny velasquez/Leatha/[place] on: 06:18 PM EDT
--- NOTE | 2025-07-09 15:43 | A.OFFVIS_ITS ---
Intake Visit Reasons: 3M follow up/ US/ litho Intake Note: Patient is present for a 3m follow up/US/Litho Urology Medication:TAMSULOSIN Antibiotic Allergy:NONE Blood Thinner:NONE Weblogic Developer Required: No Allergies No Known Allergies Allergy (Verified 07/09/25 15:44) HPI Comments Details: Mary is a pleasant female. They are seen for the following urologic conditions - nephrolithiasis Calcium oxalate monohydrate stone Discussed Litholink results Low citrate Adequate volume, borderline calcium, low-salt Encourage 1 oz lemon juice daily Six-month follow-up Nephrolithiasis Initial presentation through emergency room late January 2025 Presenting symptoms included left flank pain which had been resolved but has recurred in the past few days Imaging - 02/24 CT scan left mild hydro uretero nephrosis with 5 mm proximal ureteric stone, bilateral small stones - 06/27 renal ultrasound corticomedullary stones Laboratory investigations - creatinine 0.75, blood in the urine Stone composition - calcium oxalate monohydrate 75%, carbonate apatite 10% 24 hour urine evaluation - none on file Interventions - none Current therapeutic plan -six-month follow-up imaging [facility] Medical History Rheumatoid arthritis Tachycardia Surgical History H/O removal of cyst History of ear surgery H/O bilateral oophorectomy Social History Are you a primary long term acute care registered nurse to a significant other at home: No Do you presently have visiting nurse or other home services: No Alcohol intake: current Alcohol intake frequency: a few times a month Patient Tobacco Use Status: Never used Tobacco Review of Systems Const Denies chills and Denies fever(s) Card Reports no additional complaints and Denies syncope Resp Denies cough GI Denies abdominal pain and Denies heartburn Reports as per HPI and Denies change in libido Neuro Denies syncope Psych Denies change in libido Endo Denies change in libido Physical Exam Const General: cooperative, healthy appearing, comfortable and no acute distress Orientation/consciousness: patient oriented x3 HEENT Face and sinus: Yes normal facial exam Mouth: moist mucous membranes Neck Neck: Yes normal visual inspection, Yes full ROM and Yes trachea midline Chest Chest palpation & inspection: normal inspection of the chest Resp Effort & Inspection: normal respiratory effort, able to speak in complete sentences and no respiratory distress GI Inspection: Yes normal to inspection Back/Spine/Pelvis Cervical Spine: normal cervical lordosis Thoracic/Lumbar Spine: thoracic and lumbar spine normal to inspection Skin General skin exam: no rashes or lesions noted Neuro General: patient oriented x3, gait normal, tone normal and moves all extremities Extrem General: Yes normal to inspection and Yes capillary refill normal Assessment & Plan Assessment & Plan (1) Bilateral nephrolithiasis: Code(s): N20.0 - Calculus of kidney Category: Medical Plan Six-month follow-up renal imaging Orders: Orders US renal BI 6 Months N20.0 - Calculus of kidney Patient Instructions: This note is constructed using voice recognition software. While every effort has been made to ensure accuracy device engineer errors may have been included. Imaging studies, laboratory and physical exam results were discussed and reviewed in detail. No major barriers to patient understanding were identified. An opportunity to ask questions regarding the treatment plan was provided. All questions were answered. The patient expressed understanding and agreement with the above treatment plan. The patient is aware they should contact our office by phone for worsening of their current condition or the appearance of new urologic symptoms. Compliance is encouraged with any medications and followup testing that is ordered. It is a privilege to participate in the urologic care of your patient. If you have any questions or concerns regarding treatment for the above conditions, or other urologic issues, please do not hesitate to contact me. The office telephone contact is [phone]. Sincerely, Dr Dada Mcarthur MD, [facility] - Urology Compassionate Specialist Care for the Genitourinary System Coding Level of Care Code Est Pt Level 3 (20752) Complex EM visit Add On G2211 Diagnoses Bilateral nephrolithiasis N20.0
--- OUTSIDE RECORDS SUMMARY | 2025-07-09 18:18 | XMS_ITS | Patient Health Record ---
Author Organization [facility] Address [address] [place] [address] Care Team Providers Care Creative Lead Name Role Phone WhaleyMar muse Primary Care Provider Mack Escalante Unavailable [phone] Mauro Griffin Unavailable [phone] Preet Gonzales Unavailable [phone] Allergies No Known Allergies Results Component Value Reference Range Flag Notes CBC AND DIFFERENTIAL Reviewed date:02/27/2025 03:24:54 PM [...] 0.00-0.15 K/uL GRANULOCYTES, IMMATURE 0.03 0.00-0.09 K/uL CRP Reviewed date:02/27/2025 02:23:06 PM Interpretation: Performing Lab: Notes/Report: C REACTIVE PROTEIN <3.0 0.0-4.0 mg/L Sedimentation rate (ESR) Reviewed date:02/27/2025 02:22:59 PM Interpretation: Performing Lab: Notes/Report: ESR 9 0-30 mm/h 25-OH vitamin D Reviewed date:02/27/2025 02:23:03 PM Interpretation: Performing Lab: Notes/Report: 25 OH VIT D (TOTAL) 50 30-60 ng/mL COMP MET PANEL Reviewed date:02/27/2025 02:23:11 PM [...] 12 10-20 mmol/L GLOBULIN 2.9 1-4.8 g/dL Comprehensive Metabolic Pane l (048617, [facility]) Reviewed date:02/23/2025 07:05:00 AM Interpretation: Performing Lab:[facility] [place], [address], [place], Phone - [phone], Director - Jacklyn Notes/Report: Glucose 91 70-99 [...] 0-40 IU/L ALT (SGPT) 24 0-32 IU/L MM Digital Mammo Screening Reviewed date:06/24/2025 01:03:15 [...] (Negative) Lay letter mailed to patient WSN: [id number] Ordering Physician: Mar Whaley Dictated By: Joselin Lucas MD CT Heart W/O Dye Kyle Eval Reviewed date:06/12/2025 01:50:33 PM Interpretation: Performing Lab: Notes/Report: CT Heart W/O Dye Kyle Eval INDICATION: E78.5 HYPERLIPIDEMIA. Female of age 64 , race White COMPARISON: None TECHNIQUE: Coronary artery Calcium Scoring. After a localizing weigh and charge worker image was obtained, an ECG-gated noncontrast exam was obtained of the heart in late diastole. The region of interest was limited to the heart in order to optimize image quality. Weight-based protocol using automatic tube modulation was used to optimize exposure parameters. A Wooshii 64 scanner was used, with Agatston scoring performed using Opendisc ([employer]) web-based software. This procedure is not being [...] cardiovascular disease and treated diabetes: [email or web address] WSN: [id number] Ordering Physician: Mack Escalante Dictated By: Valerie Rojas MD, V Dexa Bone Density (Axial) Reviewed date:07/03/2025 01:43:07 PM Interpretation: Performing Lab: Notes/Report: Name:LEONIDAS ANTHONY Age:64 years Sex:Female Ethnicity:White Date of :1960 Reason: Z12.31 SCREENING; Clinical Question(s): Other: Referring Provider:Mar Whaley MD Study:Dexa Bone Density (Axial) Bone Density: Region BMD T-Score Z-Score Classification AP Spine 0.760 -2.6 -1.0 Osteoporosis TOTAL HIP 0.702 -2.0 -0.9 Osteopenia FEM NECK 0.628 -2.0 -0.6 Osteopenia 10-year Fracture Risk: Fracture Risk Not Reported: FRAX not reported because: Some T-score for Spine Total or Hip Total or Femoral Neck at or below -2.5 RATE OF CHANGE(SPINE): BMD values have increased 3.1% from previous RATE OF CHANGE(TOTAL HIP): BMD values have increased 1.5% from previous RATE OF CHANGE(FEMORAL NECK): BMD values have increased 2.8% from previous Impression: The patient has osteoporosis as determined by WHO criteria. WSN: [id number] Ordering Physician: Mar Whaley Dictated By: Shaun Elizondo MD Sedimentation Rate-Westergre n-[id number] Reviewed date:02/23/2025 07:06:15 AM Interpretation: Performing Lab:[facility] [place], [address] [place] [address], Phone - [phone], Director - [facility] Notes/Report: Sedimentation Rate-Westergren 18 0-40 mm/hr C-Reactive Protein, Quant-00 6627 Reviewed date:02/23/2025 07:05:09 AM Interpretation: Performing Lab:[facility] [place], [address] [place] [address], Phone - [phone], Director - Jacklyn Notes/Report: C-Reactive Protein, Quant 2 0-10 mg/L Kalie Anand CMP14 Default A hand-written panel/profile was received from your office. In accordance with the [facility] Ambiguous Test Code Policy dated April 2003, we have completed your order by using the closest currently or formerly recognized AMA panel. We have assigned Comprehensive Metabolic Panel (14), Test Code #874419 to this request. If this is not the testing you wished to receive on this specimen, please contact the [facility] Client Inquiry/Technical Services Department to clarify the test order. We appreciate your business. CBC, No Differential/Platele t-[id number] (Use This One) Reviewed date:02/23/2025 07:05:20 AM Interpretation: Performing Lab:[facility] [place], [address] [place] [address], Phone - [phone], Director - Jacklyn Notes/Report: WBC 6.2 3.4-10.8 x10E3/uL RBC 4.27 3.77-5.28 x10E6/uL Hemoglobin 13.5 11.1-15.9 g/dL Hematocrit 40.5 34.0-46.6 % MCV 95 79-97 fL MCH 31.6 26.6-33.0 pg MCHC 33.3 31.5-35.7 g/dL RDW 13.0 11.7-15.4 % Platelets 251 150-450 x10E3/uL T4 and TSH-[id number] Reviewed date:02/23/2025 07:05:29 AM Interpretation: Performing Lab:[facility] [place], [address] [facility], [place], Phone - [phone], Director - MDJodry Notes/Report: TSH 2.790 0.450-4.500 uIU/mL Thyroxine (T4) 8.0 4.5-12.0 ug/dL Lipid Panel-[id number] Reviewed date:03/04/2025 02:48:05 PM Interpretation: Performing Lab:[facility] [place], [address] [facility], [place], Phone - [phone], Director - MDJodry Notes/Report: Cholesterol, Total 241 100-199 mg/dL H Triglycerides 165 0-149 mg/dL H HDL Cholesterol 51 >39 mg/dL VLDL Cholesterol Jg 30 5-40 mg/dL LDL Chol Calc (NIH) 160 0-99 mg/dL H Reason For Referral Reason rheumatoid arthritis Diagnosis 1 Rheumatoid arthritis (M06.9) Referral Organization [facility] Referring Provider First Name Mack Referring Provider Last Name Boris Referring Provider Speciality Family [facility] ctice Referred Provider [facility] Referred Provider Specialty Rheumatology General Notes Maricarmen Napoles 01/02 10:50:29 AM > Referral faxed to: [phone] Clinical Notes Provider Name: [facility], Provider ID Number: , Provider UPIN: , Provider , Provider Facility: , Provider Speciality: Rheumatology, Address1: [address] [place] [address], Address2: [facility], Zip: [place], [address], , Appt. Date/Time: , Referral Priority Routine Medications Medication SIG (Take, Route, Frequency, Duration) Notes Start Date End Date Status Methotrexate Sodium 2.5 MG Tablet 5 tabs orally once a week Active Iron 90 (18 Fe) MG Tablet 1 PO BID 45mg Active Folic Acid 1 MG Tablet 1 tab(s) orally o nce a day Active Hydroxychloroquine Sulfate 2 00 MG Tablet 1 tab(s) orally once a day Active Tamsulosin HCl 0.4 MG Capsule 1 capsule Orally Once a day Active Cephalexin 500 MG Tablet 1 tablet Orally three times a day; Duration: 5 days take w food 07/04/2025 Active Ciclopirox 8 % Solution 1 application Externally Once a day; Duration: 90 days apply to affected nails 07/04/2025 Active Dexilant 60 MG Capsule Delay ed Release TAKE 1 CAPSULE BY MOUTH EVERY DAY; Duration: 90 Active Diclofenac 1% DIRECTED PRN Active Cardizem CD 240 MG Capsule Extended Release 24 Hour 1 cap(s) orally twice a day Active Immunizations Vaccine Route Administration Date Status Comme nts COVID VACC 19+ PFIZER PURCHASED IM Intramuscular 08/12/2023 Administered COVID VACC 19+ PFIZER PURCHASED IM Intramuscular 06/22/2024 Administered COVID Vacc BIVALENT 12+ Pfizer IM Intramuscular 07/09/2022 Administered DTaP Vaccine, History Unknown 1960 Administered DTaP Vaccine, History Unknown 1960 Administered DTaP Vaccine, History Unknown 1960 Administered DTaP Vaccine, History Unknown 02/21/1968 Administered Flu Vaccine; History Unknown 09/11/2009 Administered Flu Vaccine; History Unknown 07/16/2013 Administered Flu Vaccine; History Unknown 10/27/2016 Administered Flu Vaccine; History Unknown 08/03/2024 Administered FLUBLOK PURCHASED IM Intramuscular 08/14/2020 Administered FLUBLOK PURCHASED IM Intramuscular 07/16/2022 Administered FLULAVAL PURCHASED IM Intramuscular 07/12/2019 Administere d FLUZONE PURCHASED IM Intramuscular 07/29/2023 Administered H1N1 injection, history Unknown 09/11/2009 Administered MMR, vaccine history Unknown 05/31/1963 Administered MMR, vaccine history Unknown 02/12/1964 Administered MMR, vaccine history Unknown 01/06/1977 Administered OPV Vaccine; History Unknown 1960 Administered OPV Vaccine; History Unknown 01/18/1963 Administered OPV Vaccine; History Unknown 10/21/1965 Administered Shingrix, history Unknown 01/04/2025 Administered TB Test history ID Intradermal 10/19/2000 Administered Td vaccine history Unknown 03/03/1999 Administered TDAP >7 PURCHASED (ADACEL) IM Intramuscular 03/29/2019 Adm inistered Tdap vaccine history Unknown 01/04/2007 Administered Tdap vaccine history Unknown 10/14/2008 Administered Varivax vaccine (history) Unknown 12/22/1965 Administer ed Zostavax vaccine history Unknown 11/07/2012 Administere d Social History Social History Social History Social Info Question Answer Notes Smoking: Former Smoker: No Second Hand Smoke: No Additional Details Category Social Info Options Details Social History 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[employer] , [place] [employer] Alcohol: a beer or two a week Drug use: denies Caffeine: None Pets: Dogs:1 , Cats:1 , chickens Yarsanism: none lives [facility] partner Section Notes: sleep: difficulty staying asleep, [...] Status W/U Status Risk Notes Problem Hyperlipidemia (44902552) Hyperlipidemia, unspecified (E78.5) Active confirmed Problem Insomnia not due to a substance or known physiological condition, other (F51.09) Active confirmed Problem Gastroesophageal reflux disease with esophagitis (989488793) GERD with esophagitis (K21.0) Active confirmed Problem Menopause (077677560) Menopausal and female climacteric states (N95.1) Active confirmed Problem 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, 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 Problem Hyperlipidemia (56590875) Hyperlipidemia unspecified (E78.5) Active confirmed Problem Osteoporosis (29863151) Osteoporosis NOS (M81.0) Active confirmed Problem Rheumatoid arthritis (18140175) Rheumatoid arthritis (M06.9) Active confirmed Problem Macrocytosis (579670524) Macrocytosis (D75.89) Active confirmed Problem Gastroesophageal reflux disease with esophagitis (disorder) (964204276) Gastro-esophageal reflux disease with esophagitis, without bleeding (K21.00) Active confirmed Vital Signs Temperature 97.5 degrees Fahrenheit 07/04/2025 Oximetry 96 07/04/2025 Blood pressure diastolic 68 mm Hg 07/04/2025 Height 63.75 in 01/25/2025 Blood pressure systolic 116 mm Hg 07/04/2025 Weight 117.4 lbs 04/01/2025 BMI 20.31 kg/m2 01/25/2025 Encounters Encounter Location Date Provider Diagnosis [facility] [address] [place] [address] 07/04/2025 Mack Escalante [place] [address] [place] [address] 10/02/2024 Mack Escalante [facility] [address] [place] [address] 03/04/2025 Mack Escalante [facility] [place] [address] [place] [address] 04/01/2025 Mack Escalante Hyperlipidemia unspecified E78.5 [facility] [address] [place] [address] 05/08/2025 Mack Escalante [facility] [place] [address] [place] [address] 06/12/2025 Mar Whaley [facility] [address] [place] [address] 01/25/2025 Mack Escalante Adult physical NITISH L Z00.00 ; Mammogram, Routine Z12.31 and Rheumatoid arthritis M06.9 [facility] [address] [place] [address] 04/01/2025 Mack Escalante Hyperlipidemia unspecified E78.5 and Rheumatoid arthritis M06.9 [facility] [address] [place] [address] 07/04/2025 Mack Escalante Osteoporosis NOS M81 .0 ; Pain toe(s), left M79.675 and Onychomycosis B35.1 [facility] [address] [place] [address] 09/04/2024 Preet Gonzales Nausea R11.0 ; Diarrhea NOS R19.7 ; Bloating R14.0 and Rheumatoid arthritis M06.9 Assessments Encounter Date Diagnosis (ICD Code) Assessment Notes Treatment Notes Treatment Clinical Notes Section Notes 07/04/2025 Pain toe(s), left (ICD-10 - M79.675) [...] suggestive of gout or vascular compromise 07/04/2025 Osteoporosis NOS (ICD-10 - M81.0) followed by specialist, on reclast, new DEXA report faxed to specialist as they have the prior to compare 09/04/2024 Diarrhea NOS (ICD-10 - R19.7) -Likely [...] of improvement. 09/04/2024 Nausea (ICD-10 - R11.0) 01/25/2025 Mammogram, Routine (ICD-10 - Z12.31) Past due for screening. Patient has HW sheet with number to call to schedule 01/25/2025 Adult physical NORMAL (ICD-10 - Z00.00) see below Plans to schedule appt for pap when due 04/01/2025 Hyperlipidemia unspecified (ICD-10 - E78.5) LDL 160. 10 year PREVENT risk 4.4%, discussed further risk stratification with lp(a) and apoB. Also discussed CAC testing. Patient interested in further assessment , ordered. Also reviewed lifestyle , nutrition, etc 04/01/2025 Hyperlipidemia unspecified (ICD-10 - E78.5) 04/01/2025 Rheumatoid arthritis (ICD-10 - M06.9) reviewed literature and discussed the studies involving MTX and its potential impacts on LDL and CAD risks/benefits 01/25/2025 Rheumatoid arthritis (ICD-10 - M06.9) referral to [facility] made as patient in in need of new production control scheduler. Labs ordered. Condition stable 09/04/2024 Bloating (ICD-10 - R14.0) 07/04/2025 Onychomycosis (ICD-10 - B35.1) she has chronic toenail fungus. Cannot use oral antifungal given she is on MTX. She would like to try topical option. Obinna sent, reviewed proper use and advised can take up to 30 weeks 09/04/2024 Rheumatoid arthritis (ICD-10 - M06.9) -On hydroxychloroquine and methotrexate 01/25/2025 [facility] flow sheet reveiwed and updated Plan Of Treatment Pending Test Test Name Order Date Colonoscopy 03/29/2018 Colonoscopy 02/14/2017 HEMOGLOBIN A1C 12/20/2023 PAP, cervical; HPV Hybrid Capture High R isk DNA Probe any Dx 09/14/2022 PAP, cervical; HPV Hybrid Capture High R isk DNA Probe any Dx 02/14/2017 Mammogram, routine annual screening 01/31 Mammogram, routine annual screening 03/04 Mammogram, routine annual screening 03/04 COMPREHENSIVE METABOLIC PANL -[id number] 12/01 FERRITIN 09/14/2022 IRON & TIBC 09/14/2022 [...] Coronary Artery Calcium Score 04/01/2025 Urine Culture, Routine-[id number] ([place]) 02/28/2024 Lipoprotein (a)-906233 04/01/2025 Apolipoprotein B-552325 04/01/2025 Next Appt Details Provider Name:Mitra Frausto Nikhil, 09/16/2025 04:30:00 PM, [address] [place] [address], [phone], Provider Name:Mack Sharpe Boris, 0 01/29/2026 04:00:00 PM, [address] [place] [address], [phone], Insurance Providers Payer Name Payer Address Payer Phone Subscriber Number Group Number Insured Name Patient Relationship to Insured Coverage [place] [address] [id number] LEONIDAS ANTHONY Self - patient is the insured Medical (General) History Medical History History ICD Code Rheumatoid arthritis - Mook [place], [facility] Rheumatology Sinus tachycardia on CCB - [facility] diology Immunocompromised Osteoporosis s/p reclast (last BMD 1, T score -2.8 spine) Hearing loss - Dr Ryan Huff, [facility] Arthritis in left foot History of Bleeding ulcers Anemia Menopause early 50s COVID-19+ (05/03/23) PV Dermatology annually PAP (09/2022): NILM, TZ present, HPV neg ; repeat 5 years MAMMOGRAM: last 2020, OVERDUE COLOGUARD (01/25/24): normal; repeat 3 ye ars ECHO (02/2024): EF 60%, mild MR, mod TR kidney stones - [place]otri[place] [facility] [place] Surgical History Surgery Date(Month/Year) R ear surgery for hearing loss 1979 ovarian cysts removed 2003 or 2002? ovaries removed 2007 gum surgery 03/2020 uroscopy 03/18/2025 Hospitalization History Reason Date(Month/Year) [facility] for uroscopy 03/18
--- OUTSIDE RECORDS SUMMARY | 2025-07-09 18:18 | XMS_ITS | Clinical Summary ---
Author Organization [facility] Address [address] [facility] [address] [place] [phone] Phone Care Team Providers Care Protection Engineer Name Role Phone Mar Whaley MD Primary [...] Active folic acid (FOLVITE) 1 MG tabletIndication s:nursing home methotrexate user TAKE 1 TABLET BY MOUTH [...] received Reclast in the past. Will contact [facility] to inquire when her last Reclast [...] Description 06/13/2025 4:30 PM EDT Office Visit [facility] [address] [place] [address] Brittany Madden MD Rheumatoid arthritis involving multiple sites with positive rheumatoid factor (Primary Dx); Primary osteoarthritis involving multiple joints; Localized osteoporosis without current pathological fracture; Chronic left-sided low back pain without sciatica; High risk medications (not anticoagulants) long-term use; Immunosuppression due to drug therapy 06/13/2025 Telephone [facility] [address] [place] [address] Brittany Madden MD Appointment 06/08/2025 Refill [facility] [address] [place] [address] Miri Rogers MD Medication Refill 06/08/2025 Refill [facility] [address] [place] [address] [address] Floor, [address] [place] [address] Tomás Davenport MD Medication Refill from Last 3 [...] [facility] [address] [place] [address] Nadia Christianson, [address] [facility], [address] [place] [address] [email or web address] Health Maintenance Due Date Last Done Comments [...] AM EST) HCV NON-REACTIV E NON-REACTI VE [facility] Blood 11/23/2023 11:0 2 AM EST 11/23/2023 11:07 AM EST us Mook Green MD LAB BLOOD ORDERABLES Fi nal Result Performing Organization Address City/State/[facility] Co de Phone Number [facility] [address] [place] [address] from Last 3 Months or Most Recently Relevant to Health Maintenance [facility] [place] [id number] [place] [address] [facility] [id number] [place] [address] [id number] [place] [address] [id number] [place], [place] [address]O [facility] HMO Care Teams Protection Engineer Relationship Specialty Start Date End Date Mar Whaley MD [address] [place] [phone] maria del PCP - General Family Medicine 08/10/18 Additional Source Comments The information contained in this document represents components of the legal health record. It is not the complete legal health record.[facility]
--- OUTSIDE RECORDS SUMMARY | 2025-07-09 18:18 | XMS_ITS | Clinical Summary ---
Author Organization [facility] Address [address] [place] [address] Care Team Providers Care Mail Inserter Name Role Phone Unavailable Primary Care Provider [...]
--- OUTSIDE RECORDS SUMMARY | 2025-07-09 18:18 | XMS_ITS | Encounter Summary ---
Author Organization [facility] Address [address] [facility] [address] [place] [phone] Phone Care Team Providers Care Monument Setter Helper Name Role Phone Mar Whaley MD Primary Care Provider + Encounter Details Date Type Department Care Team (Late Contact Info) Description 08/03/2023 Procedure Pass Echo [facility] [address] [place] [address] Social History Tobacco Use Types Packs/Day Years [...] 4:00 PM EST Office Visit [facility] [address] [place] [address] Nadia Christianson DO [address] [facility], [address] [place] [address] [email or web address] documented as of this encounter Visit Diagnoses Not on filedocumented in this encounter Care Teams Monument Setter Helper Relationship Specialty Start Date End Date Mar Whaley MD [address] [place] [address] [email or web address] PCP - General Family Medicine 08/10/18 documented as of this encounter Additional Source Comments The information contained in this document represents components of the legal health record. It is not the complete legal health record.[facility]
--- OUTSIDE RECORDS SUMMARY | 2025-07-09 18:19 | XMS_ITS | Data Portability ---
Author Organization [place] - [facility]'s [facility], [facility] Address [id number] [place] [address] Care Team Providers Care Water Filtration Technician Name Role Phone JESSICA LOVELL Primary Care Provider [phone] Assessment No assessment recorded. Plan of Treatment Reminders Order Date Submit Date Provider Last Modified By Organization Details Last Modified Time Details Appointments None recorded. Lab urinalysis , dipstick 2014 015 [email or web address] In-Office Order, Internal Use Only DO Not Attach Compendium DO Not Attach Compendium, Do Not Delete/merge, [id number] 5 08:43:35 fecal occult blood, stool 2014 015 [email or web address] In-Office Order, Internal Use Only DO Not Attach Compendium DO Not Attach Compendium, Do Not Delete/merge, [id number] 5 08:43:35 Referral None recorded. Procedures None recorded. Surgeries None recorded. Imaging MAMMO, screening, digital, bilateral 2014 015 [email or web address] [facility] [place], [address] [facility] [place], [place], [facility] [address], [place], [address], 5 08:39:01 Medication Orders Vivelle-Do t 0.075 mg/24 hr transderma l patch 2014 015 INTERFACE [employer] [employer], [address] [place], [place], [id number], 5 08:48:21 Prometrium 200 mg capsule 2014 015 INTERFACE [employer], [address] [place], [place], [id number], 08:48:23 Patient TargetsNo targets recorded. Patient Instructions Encounter Date Encounter Id Patient Instructions Last Modified By Organization Details Last Modified Time 03/31/2015 [id number] Patient had a no rmal exam today. Advise yearly check up, a Pap smear is no longer indicated at every year's check up if normal with negative HPV. Advise yearly mammogram starting age 40 and if dense breasts then also breast ultrasound. 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 DEXA bone density screening [...] DO Not Attach Compendium, Do Not Delete/merge, [id number] 03/31/2015 08:41:41 03/31/2003/31/2015 urina lysis , dipst ick Leukocytes Negati ve Not Available In-Office Order Internal Use Only DO Not Attach Compendium DO Not Attach Compendium, Do Not Delete/merge, [id number] 03/31/2015 08:28:10 03/31/2003/31/2015 urina lysis , dipst ick Nitrite negati ve Not Available In-Office Order Internal Use Only DO Not Attach Compendium DO Not Attach Compendium, Do Not Delete/merge, [id number] 03/31/2015 08:28:10 03/31/2003/31/2015 urina lysis , dipst ick Urobilinogen Normal : 0.2 mg/dl Not Available In-Office Order Internal Use Only DO Not Attach Compendium DO Not Attach Compendium, Do Not Delete/merge, [id number] 03/31/2015 08:28:10 03/31/2003/31/2015 urina lysis , dipst ick Protein Negati ve Not Available In-Office Order Internal Use Only DO Not Attach Compendium DO Not Attach Compendium, Do Not Delete/merge, [id number] 03/31/2015 08:28:10 03/31/2003/31/2015 urina lysis , dipst [...] 03/31/2003/31/2015 urina lysis , dipst ick Specific Kechi 1.015 Not Available In-Off ice Order Internal [...] DO Not Attach Compendium, Do Not Delete/merge, [id number] 03/31/2015 08:28:10 03/31/20 15 03/31/2015 urina lysis , dipst ick Color Yellow Not Available In-Office Order Internal Use Only DO Not Attach Compendium DO Not Attach Compendium, Do Not Delete/merge, [id number] 03/31/2015 08:28:10 05/15/20 19 12/09/2011 MAMMO , scree donald, digit al, bilat eral, w/ CAD No observ ation record ed. [email or web address] Not Available 05/15 11:01:15 Result Notes None recorded. Problems Name Problem SNOMED Code Status Onset Date Resolution Date Notes Provider Name and Address Organization Details Recorded Time Arthritis 4718531 Active 013 Not Available [facility] 5 02:19:13 Problem Notes None recorded. Procedures Surgical History Date Name Laterality Status Provider Name and Address Organization Details Recorded Time 5 Z9A-OJF completed Marjan Brooks [place] - [facility] 03/31/2015 08:20:15 5 [id number]-[id number] completed GARCIA GALLOWAY MD [address] [place] [address], [address], [place], [address], [place] - [facility] 03/31/2015 08:41:11 5 U7L-HRJ completed Marjan Brooks [place] - [facility] 03/31/2015 08:20:15 5 P5L-UMIIULQ [facility] 03/31/2015 08:20:15 5 [id number] completed Marjan Brooks [place] - [facility] 03/31/2015 08:20:15 4 Date of Last Pap Smear completed Che Lu [place] - [facility] 03/28/2015 08:45:15 03/08/201 2 Date of Last Mammogram completed [facility] 03/28/2015 08:51:[address] [facility] 01/13/2017 10:45:05 Imaging Results None recorded. Procedure Notes None recorded. Medical Equipment None Reported. Allergies Allergen ID Allergen Name Allergen Category Reaction Reaction Severity Criticality Documentation Date Start Date Code Code System Note Provider Name and Address Organization Details Recorded Time 549503 No known allergy (situatio n) Not available Not available Not available Not available 01/25/20152012 51270 6003 SNOMED Not Available [facility] 5 14:33:35 Medications Name Sig Start [...] Body mass index (BMI) Body height Systolic And Diastolic Provider Name and Address Organization Details Last Updated DateTime 03/31/2015 12555.385 001 g 19.5 kg/m2 165.1 cm 114/62 mm[Hg] Marjan Guy [facility] 03/31/2015 08:20:15 Social History Question Answer Notes LastModified by [employer] Details LastModified Time Tobacco Smoking Status Never Smoker Marjan Guy ailyn [facility] 03/31/2015 08:26:28 Is Blood Transfusion Acceptable In An Emergency? Yes Information not available 03/31/2015 Do You Feel Safe At Home? Yes Information not available 03/31/2015 Do You Use Protection During Sex? Always Information not available 03/31/2015 General Stress Level Low Information not available 03/31/2015 Sex: Unknown Functional Status Question Answer Note LastModified by [employer] Details LastModified Time What is your level [...] Diagnosis SNOMED-CT Code Diagnosis ICD10 Code Diagnosis IMO Codes Diagnosis Note [id number] GARCIA GALLOWAY MD [facility] [address] [facility] [place],[address] [address] 03/31/2015 07:51:17 03/31/2015 08:42:51 Gynecologic examination [id number] Health Concerns Section Related Observation LastModified by Organization Detai ls LastModified Time None Recorded Concern Status LastModified by Organization Details LastModified Time None Recorded Advance Directives Directive None Recorded Payers Insurance Date Sequence Insurance Name Policy Number Policy Johnson Covered Member ID Johnson Member ID Guarantor Name 01/31/2017 1 [employer] [place] [place] [id number] 1 Mary Morrow [id number] Mary Morrow 10/06/2016 1 [facility] [id number] Mary Morrow [id number] Mary Morrow Notes Date Note Type Note Provider Name and Address Organization Details Recorded Time 03/31/2015 text/html [facility] Annual GYNRe ported by PatientHistoryFor history, patient reportsno gynecologic complaints.Genitourina ry symptomsFor urinary symptoms, patient reportsno hematuriaandno incontinence. For vulva, patient reportsno genital lesion. For vagina, patient reportsnormal vaginal discharge. For menstrual cycle, (pt gets period every 3 months.).Breast symptomsFor breast, patient reportsno breast pain,no breast lump, andno nipple discharge.Contraceptio nFor current contraception, (no bc.).Endocrine symptomsFor sexual activity, patient reportsno sexual complaints,no pain during intercourse, andnormal libido. For menopausal symptoms, patient reportsno menopausal symptomsandnormal vaginal lubrication.Psychologi violet symptomsFor psychological symptoms, patient reportsno depression,no anxiety, andno pmdd. GARCIA GALLOWAY MD [address] [place] [address], [address], [place], [address], [place] - [facility] 03/31/2015 08:44:19 OBGyn Episode No OBEpisode recorded.
== END 2025-07-09 16:08 | disposition home or self-care (01) ==
LOC: HO.HUSH 15:04
PROVIDERS: Visit Provider Urology
DX: N20.0 Calculus of kidney (principal)
CPT/HCPCS: 99213; G2211